=== PATIENT | male | born 2000 | race Hispanic/Latino ===

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

== ENCOUNTER 2020-12-01 22:14 | Emergency (ER) | payer OTHER, SELFPAY ==
--- OUTSIDE RECORDS SUMMARY | 2020-12-01 23:51 | XMS REPORT | Continuity of Care Document ---
:2000 Author Organization [facility] t Address [address] Cardenas [address] [place] [id number] Care Team Providers Name Role Phone Unavailable Unavailable Unavailable Problems This patient has no known problems. Allergies, Adverse Reactions, Alerts This patient has no known allergies or adverse reactions. Medications This patient has no known medications. Procedures This patient has no known procedures. Results This patient has no known results.
[2020-12-02] MEDS ORDERED: HYDROCODONE/APAP 5/325 MG TAB ONE
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
[2020-12-02 04:42] VITALS: O2SAT 98
[2020-12-02 04:43] VITALS: BP 156/63; TEMP 99.8
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
== END 2020-12-02 01:42 | disposition home or self-care (01) ==
LOC: ER 22:14
DX: S93.401A Sprain of unspecified ligament of right ankle, initial encounter (principal); X50.0XXA Overexertion from strenuous movement or load, initial encounter
CPT/HCPCS: 99284

== ENCOUNTER 2020-12-28 18:31 | Emergency (ER) | payer OTHER, SELFPAY ==
--- OUTSIDE RECORDS SUMMARY | 2020-12-28 18:34 | XMS REPORT | Continuity of Care Document ---
:2000 Author Organization [facility] t Address [address] Cardenas [address] [place] [id number] Care Team Providers Name Role Phone Unavailable Unavailable Unavailable Problems This patient has no known problems. Allergies, Adverse Reactions, Alerts This patient has no known allergies or adverse reactions. Medications This patient has no known medications. Procedures This patient has no known procedures. Results This patient has no known results.
[2020-12-28] MEDS ORDERED: IBUPROFEN 400 MG TAB ONE (21:21)
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
[2020-12-28 23:08] VITALS: BP 142/87; TEMP 98.2; O2SAT 100
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
== END 2020-12-28 22:57 | disposition home or self-care (01) ==
LOC: ER 18:31
DX: M54.5 Low back pain (principal); M54.2 Cervicalgia; V43.62XA Car passenger injured in collision with other type car in traffic accident, initial encounter
CPT/HCPCS: 72125; 72128; 72131; 99284

== ENCOUNTER 2022-03-25 19:40 | Emergency (ER) | payer SELFPAY ==
--- OUTSIDE RECORDS SUMMARY | 2022-03-25 19:44 | XMS REPORT | Continuity of Care Document ---
:2000 Author Organization [facility] t Address [facility] [place] [address] Care Team Providers Name Role Phone PCP, PATIENT DOES NOT HAVE A Primary Care Physician Unavaila ble AMBREEN_REGINALDOA Attending Clinician Unavailable Jake SANTIAGO Attending Clinician Unavailable CAROLE_ELIO Admitting Clinician Unavailable Payers Payer Name Policy Type Policy Number Effective Date Expiration Date [facility] [id number] 2015 CHOICE MEDICAID 00:00:00 Problems This patient has no known problems. Allergies, Adverse Reactions, Alerts Allergy Allergy Status Severity Reaction(s) Onset Inactive Treating Comm ents Source Name Type Date Date Clinician NO KNOWN Drug [facility] This patient has no known medications. Procedures This patient has no known procedures. Encounters Start End Encounter Admission Attending Care Care Encounter Source Date/Time Date/Time Type Type Clinicians Facility Department ID 2021-11-22 2021-11-22 Outpatient AMBREEN_F[facility] [id number] [place] 04:25:00 04:25:00 [facility] 2021-11-01 2021-11-01 Outpatient AMBREEN_[facility] [id number] [place] 12:09:00 12:09:00 [facility] 2020-11-08 2020-11-08 Outpatient Shelly SANTIAGO [facility] [id number] [facility] 15:00:00 15:00:00 [facility] 2020-11-08 2020-11-08 Outpatient [facility] [id number] [facility] 15:00:00 15:00:00 [id number] [facility] 2020-10-11 2020-10-11 Outpatient Shelly SANTIAGO [facility] [id number] [facility] 15:00:00 15:00:00 [facility] 2020-01-09 2020-01-09 Outpatient AMBREEN_[facility] [id number] [place] 02:35:00 02:35:00 HANSA [id number] da [facility] Results This patient has no known results.
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
[2022-03-25] MEDS ORDERED: dexAMETHasone 10 MG/ML VIAL ONE (20:48)
== END 2022-03-25 20:47 | disposition home or self-care (01) ==
LOC: ER 19:40
DX: U07.1 COVID-19 (principal)
CPT/HCPCS: 96372; 99283; J1100

== ENCOUNTER → 2023-11-01 | Emergency (ER) | payer SELFPAY ==
--- OUTSIDE RECORDS SUMMARY | 2023-11-01 17:25 | XMS REPORT | Continuity of Care Document ---
Author Name Unknown Address [address] [place] [address] [facility] Address [address] [place] [address] Care Team Providers Care Oral Surgery Physician Name Role Phone PCP, PATIENT DOES NOT HAVE A Primary Care Physic karina Unavailable AMBREEN_FARHANA Attending Clinician Unavailable LUI SANTIAGO Attending Clinician Unavailable AMBREEN_FARHANA Admitting Clinician Unavailable Payers Payer Name Policy Type Policy Number Effective Date Expirati on Date Source [facility] MEDICAID [id number] 2015 00:00:00 Allergies, Adverse Reactions, Alerts Allergy Name Allergy Type Status Severity Reaction(s) Onset Date Inactive Date Treating Clinician Comments Source NO KNOWN ALLERGIE S Drug Class Active [facility] Encounters Start Date/Time End Date/Time Encounter Type Admission Type Attending Clinicians Care Facility Care Department Encounter ID Source 2023-05-29 09:38:24 2023-05-29 09:38:24 Outpatient [facility] [id number] Cordell Nieto 2023-05-04 15:01:51 2023-05-04 15:01:51 Outpatient [facility] [id number] Cordell Cotton Gerson 2023-05-02 13:47:44 2023-05-02 13:47:44 Outpatient [facility] [id number] Cordell Nieto 2021-11-22 04:25:00 2021-11-22 04:25:00 Outpatient AMBREEN_FAR HANA JUDY [facility] [id number] Julián [facility] 2021-11-01 12:09:00 2021-11-01 12:09:00 Outpatient BELLOWU RAYGOZAMattie MAGIA [facility] [id number] [facility] 2020-11-08 15:00:00 2020-11-08 15:00:00 Outpatient LUI [facility] [id number] [facility] 2020-11-08 15:00:00 2020-11-08 15:00:00 Outpatient [facility] [id number] [facility] 2020-10-11 15:00:00 2020-10-11 15:00:00 Outpatient LUI [facility] [id number] [facility] 2020-01-09 02:35:00 2020-01-09 02:35:00 Outpatient BELLOWU RAYGOZAMattie KIM [facility] [id number] [facility]
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
[2023-11-01 19:42] VITALS: BP 140/80; TEMP 97.6; O2SAT 100
--- NOTE | 2023-11-01 19:46 | RAD REPORT ---
EXAM DESCRIPTION: RAD - Chest Single View - 11/01/2023 7:30 pm CLINICAL HISTORY: CHEST PAIN Chest pain. COMPARISON: Chest Pa And Lat (2 Views) dated 08/08/2019; CHEST PA AND LAT 2 VIEW dated 10/19/2008 FINDINGS: Portable technique limits examination quality. The lungs are grossly clear. The heart is normal in size. No displaced fractures. IMPRESSION: No acute intrathoracic process suspected.
--- NOTE | 2023-11-01 19:48 | RAD REPORT ---
EXAM DESCRIPTION: RAD - C Spine Ap/Lat - 11/01/2023 7:30 pm CLINICAL HISTORY: left paresthesia Pain, radiculopathy COMPARISON: No comparisons FINDINGS: Cervical bodies are normal in height and alignment.No fracture or acute bony process seen. No disc space narrowing. No prevertebral soft tissue thickening or other suspicious soft tissue finding. IMPRESSION: Negative cervical spine examination.
--- NOTE | 2023-11-02 15:24 | EKG ---
Test Date: 2023-11-01 Test Time: 17:37:07 Basket Assembler: FLORES MEASUREMENT RESULTS: Intervals: Rate: 69 NE: 156 QRSD: 86 QT: 358 QTc: 383 [place]: P: 45 NE: 156 QRS: 75 T: 38 INTERPRETIVE STATEMENTS: Normal sinus rhythm Normal ECG No previous ECG available for comparison Electronically Signed On 11-02-23 15:23:24 SHEETROCK APPLICATOR by Giorgio Stroud
== END ==
LOC: ER 17:22
DX: M54.12 Radiculopathy, cervical region (principal); R07.9 Chest pain, unspecified
CPT/HCPCS: 71045; 72040; 93005

== ENCOUNTER 2024-07-02 19:06 | Emergency (ER) | payer BC, SELFPAY ==
--- OUTSIDE RECORDS SUMMARY | 2024-07-02 19:09 | XMS REPORT | Continuity of Care Document ---
Author Name Unknown Address [address] [place] [address] [facility] Address [address] [place] [address] Care Team Providers Care Laborer/Key Man Name Role Phone PCP, PATIENT DOES NOT HAVE A Primary Care Physic karina Unavailable Dasia Payne Attending Clinician [phone] DASIA BAKER Attending Clinician Unavail able AMBREEN_FARHANA Attending Clinician Unavailable LUI SANTIAGO Attending Clinician Unavailable ESTRELLITA Admitting Clinician Unavailable Payers Payer Name Policy Type Policy Number Effective Date Expirati on Date Source [employer] [id number] 2015 00:00:00 Allergies, Adverse Reactions, Alerts Allergy Name Allergy Type Status Severity Reaction(s) Onset Date Inactive Date Treating Clinician Comments Source NO KNOWN ALLERGIE S Drug Class Active [facility] Social History Social Habit Start Date Stop Date Quantity Comments Source Sexual [facility] Alcoholic beverage intake 2018-01-11 00:00:00 2018-01-11 00:00:00 Current non-drinker of alcohol (finding) [facility] Tobacco use and exposure 2017-09-22 00:00:00 2017-09-22 00:00:00 Smokeless tobacco non-user [facility] History of Social function 2017-09-22 00:00:00 2017-09-22 00:00:00 [facility] Sex assigned at 2000 00:00:00 2000 00:00:00 [facility] Smoking Status Start Date Stop Date Source Never smoked tobacco [facility] Immunizations Ordered Immunization Name Filled Immunization Name Date Status Comments Source SARS-COV-2 COVID-19 MODERNA 12+ YRS VACCINE Unknown Completed [facility] Encounters Start Date/Time End Date/Time Encounter Type Admission Type Attending [facility] Care Department Encounter ID Source 2024-03-21 13:37:00 2024-03-21 23:59:00 Hospital Encounter Dasia Baker [facility] [email or web address] [facility]. [id number] [facility] 2024-03-21 00:00:00 2024-03-21 23:59:00 Outpatient DASIA SALCEDO [facility] [id number] [facility] 2023-05-29 09:38:24 2023-05-29 09:38:24 Outpatient SFA SFA [id number] Cordell Nieto 2023-05-04 15:01:51 2023-05-04 15:01:51 Outpatient SFA SFA [id number] Cordell Nieto 2023-05-02 13:47:44 2023-05-02 13:47:44 Outpatient SFA SFA [id number] Cordell Nieto 2021-11-22 04:25:00 2021-11-22 04:25:00 Outpatient AMBREEN_FAR HANA [facility] [id number] [facility] 2021-11-01 12:09:00 2021-11-01 12:09:00 Outpatient AMBREEN_FAR HANA [facility] [id number] [facility] 2020-11-08 15:00:00 2020-11-08 15:00:00 Outpatient LUI HERMAN [facility] [id number] [facility] 2020-11-08 15:00:00 2020-11-08 15:00:00 Outpatient [facility] [id number] [facility] 2020-10-11 15:00:00 2020-10-11 15:00:00 Outpatient LUI HERMAN [facility] [id number] [facility] 2020-01-09 02:35:00 2020-01-09 02:35:00 Outpatient HEAVEN KIM [facility] [id number] [facility]
[2024-07-02 19:54] LABS: SARS-CoV-2 Antigen CONTROL BLUE LINE VIS/BG OK; SARS-CoV-2 Antigen Rapid Res Negative (Negative)
--- NOTE | 2024-07-02 19:57 | EDPHYS ---
Physician Documentation [facility] Name: Yohannes Brooks Jr Age: 23 yrs Sex: Male : 2000 Arrival Date: 07/02/2024 Time: 19:06 Bed 12 Private MD: ED Physician Sierra Rosen HPI: 07/02 19:18 This 23 yrs old Male presents to ER via Ambulatory with complaints of Cough. kb 19:18 Patient is a 23-year-old male who presents failure cough, chest congestion and fever kb that started 3 days ago. Temperature max 102. Denies vomiting, diarrhea.. Historical: - Allergies: 19:17 No Known Allergies; bm8 - Home Meds: 19:17 None [Active]; bm8 - PMHx: 19:17 concussion; bm8 - PSHx: 19:17 None; bm8 - Immunization history:: Adult Immunizations up to date. - Infectious Disease History:: Denies. - Social history:: Smoking status: Patient denies any tobacco usage or history of. ROS: 19:18 Constitutional: As per HPI kb Exam: 19:18 Constitutional: This is a well developed, well nourished patient who is awake, alert, kb and in no acute distress. Head/Face: Normocephalic, atraumatic. ENT: Moist Mucous membranes Cardiovascular: Regular rate Respiratory: Respirations even and unlabored. No increased work of breathing. Talking in full sentences Skin: Warm, dry with normal turgor. Normal color. MS/ Extremity: Pulses equal, no cyanosis. Neurovascular intact. Full, normal range of motion. Neuro: Awake and alert, GCS 15, oriented to person, place, time, and situation. 19:18 ENT: Posterior pharynx: Tonsils: bilaterally enlarged, with erythema, swelling, that is mild, erythema, that is moderate, Vital Signs: 19:16 BP 158 / 92; Pulse 92; Resp 18; Temp 100; Pulse Ox 96% ; Weight 88 kg; Height 5 ft. 7 bm8 in. ; Pain 5/10; 19:16 Body Mass Index 30.38 (88.00 kg, 170.18 cm) bm8 19:16 Pain Scale: Adult bm8 MDM: 19:17 Medical Screening Exam initiated kb 19:56 Data reviewed: vital signs, nurses notes. kb 19:56 Differential Diagnosis: Other flu, covid, uri, strep. I considered the following kb discharge prescriptions or medication management in the emergency department I discussed and recommended Over The Counter medications, Antibiotics: At this time antibiotics are not recommended. Counseling: I had a detailed discussion with the patient and/or guardian regarding the historical points, exam findings, and any diagnostic results supporting the discharge/admit diagnosis, lab results, the need for outpatient follow up, a family practitioner, to return to the emergency department if symptoms worsen or persist or if there are any questions or concerns that arise at home. 07/02 19:18 Order name: Flu; Complete Time: 19:56 kb 07/02 19:18 Order name: SARS-COV-2 Antigen Rapid; Complete Time: 19:56 kb 07/02 19:18 Order name: Strep; Complete Time: 19:56 kb 07/02 19:58 Order name: Throat Culture EDMS Administered Medications: No medications were administered Disposition Summary: 07/02/24 19:57 Discharge Ordered Notes: Location: Home kb Condition: Stable kb Diagnosis - Acute upper respiratory infection, unspecified kb Followup: kb - With: Emergency Department - When: As needed - Reason: Worsening of condition Followup: kb - With: Private Physician - When: 2 - 3 days - Reason: Recheck today's complaints, Continuance of care, Re-evaluation by your physician Discharge Instructions: - Discharge Summary Sheet kb - Upper Respiratory Infection, Adult, [id number] kb - Viral Respiratory Infection, [id number] kb Forms: - Medication Reconciliation Form kb - Antibiotic Education kb - Prescription Opioid Use kb - Patient Portal Instructions kb - Leadership Thank You Letter kb Signatures: Dispatcher [employer] EDMS Ashley Culp, OFF PREMISE SERVICE REPRESENTATIVE-C OFF PREMISE SERVICE REPRESENTATIVE-Ckb Sebastián Mcdaniel, RN RN bm8 Corrections: (The following items were deleted from the chart) 19:18 19:18 Influenza Screen (A \T\ B)+BA.LAB.BRZ ordered. EDMS EDMS 19:18 19:18 SARS-COV-2 Antigen Rapid+I.LAB.BRZ ordered. EDMS EDMS 19:18 19:18 Group A Streptococcus Rapid Sc+BA.LAB.BRZ ordered. EDMS EDMS
--- NOTE | 2024-07-02 19:57 | ER ---
Nurse's Notes [facility] Name: Yohannes Brooks Jr Age: 23 yrs Sex: Male : 2000 Arrival Date: 07/02/2024 Time: 19:06 Bed 12 Private MD: Diagnosis: Acute upper respiratory infection, unspecified Presentation: 07/02 19:16 Chief complaint: Patient states: i have cough fever and congestion for three days. bm8 Coronavirus screen: Vaccine status: Patient reports receiving the 2nd dose of the covid vaccine. Ebola Screen: Patient negative for fever greater than or equal to 101.5 degrees Fahrenheit, and additional compatible Ebola Virus Disease symptoms Patient denies exposure to infectious person. Patient denies travel to an Ebola-affected area in the 21 days before illness onset. No symptoms or risks identified at this time. Initial Sepsis Screen: Does the patient meet any 2 criteria? HR > 90 bpm. No. Patient's initial sepsis screen is negative. Does the patient have a suspected source of infection? No. Patient's initial sepsis screen is negative. Risk Assessment: Do you want to hurt yourself or someone else? Patient reports no desire to harm self or others. Onset of symptoms was June 29, 2024. 19:16 Method Of Arrival: Ambulatory 8 19:16 Acuity: GENOVEVA 4 bm8 Triage Assessment: 19:17 General: Appears in no apparent distress. uncomfortable, Behavior is calm, cooperative, bm8 appropriate for age. Pain: Complains of pain in chest Pain does not radiate. Pain currently is 5 out of 10 on a pain scale. Quality of pain is described as tight Pain began 2-3 days ago. EENT: No deficits noted. No signs and/or symptoms were reported regarding the EENT system. Neuro: No deficits noted. Level of Consciousness is awake, alert, obeys commands, Oriented to person, place, time, situation, Appropriate for age. Cardiovascular: Reports chest pain, from coughing Heart tones S1 S2 present. Respiratory: Reports cough that is Breath sounds are clear bilaterally. GI: No deficits noted. No signs and/or symptoms were reported involving the gastrointestinal system. : No deficits noted. No signs and/or symptoms were reported regarding the genitourinary system. Derm: No deficits noted. No signs and/or symptoms reported regarding the dermatologic system. Musculoskeletal: No deficits noted. No signs and/or symptoms reported regarding the musculoskeletal system. Historical: - Allergies: 19:17 No Known Allergies; bm8 - Home Meds: 19:17 None [Active]; bm8 - PMHx: 19:17 concussion; bm8 - PSHx: 19:17 None; bm8 - Immunization history:: Adult Immunizations up to date. - Infectious Disease History:: Denies. - Social history:: Smoking status: Patient denies any tobacco usage or history of. Screenin:13 [facility] ED Fall Risk Assessment (Adult) History of falling in the last 3 months, jb4 including since admission No falls in past 3 months (0 pts) Confusion or Disorientation No (0 pts) Intoxicated or Sedated No (0 pts) Impaired Gait No (0 pts) Mobility Assist Device Used No (0 pt) Altered Elimination No (0 pt) Score/Fall Risk Level 0 - 2 = Low Risk Oriented to surroundings, Maintained a safe environment. Abuse screen: Denies threats or abuse. Nutritional screening: No deficits noted. Tuberculosis screening: No symptoms or risk factors identified. Assessment: 20:13 Reassessment: Patient appears in no apparent distress at this time. Patient and/or jb4 family updated on plan of care and expected duration. Pain level reassessed. Patient is alert, oriented x 3, equal unlabored respirations, skin warm/dry/pink. Vital Signs: 19:16 BP 158 / 92; Pulse 92; Resp 18; Temp 100; Pulse Ox 96% ; Weight 88 kg; Height 5 ft. 7 bm8 in. ; Pain 5/10; 19:16 Body Mass Index 30.38 (88.00 kg, 170.18 cm) bm8 19:16 Pain Scale: Adult bm8 ED Course: 19:09 Patient arrived in ED. ra3 19:17 Ashley [facility]ulp [facility]NP-C [facility] kb 19:17 Sierra Rosen MD is Attending Physician. kb 19:17 Triage completed. bm8 19:17 Arm band placed on right wrist. bm8 20:13 Patient has correct armband on for positive identification. Bed in low position. Call jb4 light in reach. Side rails up X 1. Provided Education on: discharge instructions.. 20:13 No provider procedures requiring assistance completed. Patient did not have IV access jb4 during this emergency room visit. Patient maintains SpO2 saturation greater than 95% on room air. Administered Medications: No medications were administered Medication: 20:13 VIS not applicable for this client. jb4 Outcome: 19:57 Discharge ordered by . kit 20:13 Discharged to home ambulatory, jb4 20:13 Condition: stable 20:13 Discharge instructions given to patient, Instructed on discharge instructions, follow up and referral plans. Demonstrated understanding of instructions, follow-up care, 20:14 Patient left the ED. jb4 Signatures: Ashley Culp, RC-Lopez TATUM-Nish Varner, RN RN jb4 Inge Thompson ra3 Sebastián Mcdaniel, RN RN bm8
[2024-07-02 20:37] VITALS: BP 158/92; TEMP 100; O2SAT 96
== END 2024-07-02 20:14 | disposition home or self-care (01) ==
LOC: ER 19:06
DX: J06.9 Acute upper respiratory infection, unspecified (principal); Z11.52 Encounter for screening for COVID-19
CPT/HCPCS: 36415; 87070; 87081; 87804; 87811; 99282

== ENCOUNTER 2024-11-03 07:45 | Inpatient (IN) | payer BC ==
--- OUTSIDE RECORDS SUMMARY | 2024-11-03 07:49 | XMS REPORT | Continuity of Care Document ---
Author Name Unknown Address [address] [place] [address] [facility] thconnect Address [address] [facility] [address] [place] [address] Care Team Providers Care Rail Washer Name Role Phone Pcp, Patient Does Not Have A Primary Care Physic karina Priyanka English Attending Clinician [phone] Unknown, Attending Attending Clinician Unavailab PRIYANKA Andrews Attending Clinician Unavailable Doctor Unassigned, [place] Attending Clinician U navailMELODIE Renteria Attending Clinician Unavailable MELODIE BRUNO Attending Clinician Unavailable Melodie Bruno NP Attending Clinician [phone] LISHA HERNANDEZ Attending Clinician UnavailLISHA Rose Attending Clinician UnavailLisha Rose MD Attending Clinician [phone] Dasia Payne Attending Clinician + [phone] DASIA REEVES Attending Clinician Unavail able Campaigns, Generic Provider Attending Clinician Unavailable Joe Galdamez Attending Clinician [phone] JOE HARRIS Attending Clinician Unavailable Dasia Payne Attending Clinician + [phone] AMBREEN_REGINALDOA Attending Clinician Unavailable LUI SANTIAGO Attending Clinician Unavailable ESTRELLITA Admitting Clinician Unavailable Payers Payer Name Policy Type Policy Number Effective Date Expirati on Date Source [facility] MEDICAID [id number] 2015 00:00:00 Allergies, Adverse Reactions, Alerts Allergy Name Allergy Type Status Severity Reaction(s) Onset Date Inactive Date Treating Clinician Comments Source NO KNOWN ALLERGIE S Drug Class Active [facility] Social History Social Habit Start Date Stop Date Quantity Comments Source [facility] Tobacco use and exposure 2024-11-02 00:00:00 2024-11-02 00:00:00 Smokeless tobacco non-user [facility] Alcoholic beverage intake 2024-11-02 00:00:00 2024-11-02 00:00:00 Current non-drinker of alcohol (finding) [facility] History of Social function 2024-11-02 00:00:00 2024-11-02 00:00:00 [facility] Sex assigned at 2000 00:00:00 2000 00:00:00 [facility] Smoking Status Start Date Stop Date Source Never smoked tobacco [facility] Medications Ordered Medication Name Filled Medication Name Start Date Stop Date Current Medication? Ordering Clinician Indication Dosage Frequency Signature (SIG) Comments Components Source dexAMETHaso ne (DECADRON) tablet 12 mg 11-03 02:30: 00 11-03 01:56 :00 No [id number] 12mg 12 mg, Oral, ONCE, 1 dose, On 11/02/24 at 2030, Routine [facility] emtricitabi ne-tenofovi r, TDF, 200-300 mg tablet 2023-09 00:00: 00 Yes 1{tbl} Take 1 tablet by mouth in the morning. [facility] dolutegravi r 50 mg tablet 2023-09 00:00: 00 Yes 50mg Take 1 tablet by mouth in the morning. [facility] dolutegravi r 50 mg tablet 2023-09 00:00: 00 08-28 05:59 :00 Yes [id number] 9105 50mg Take 1 tablet by mouth in the morning for 3 days. [facility] emtricitabi ne-tenofovi r alafen tablet 2023-09 00:00: 00 08-28 05:59 :00 Yes [id number] 9105 1{tbl} Take 1 tablet by mouth in the morning for 3 days. [facility] ondansetron 4 mg tablet 2023-09 00:00: 00 08-23 00:00 :00 Yes [id number] 9105 1 or 2 tablets every 8 hours as needed for nausea [facility] ipratropium -albuteroL (DUONEB) 0.5 mg-3 mg(2.5 mg base)/3 mL nebulizer solution 3 mL 2023-09 02:41: 00 07-18 02:48 :00 No [id number] 3mL 3 mL, Inhalation , ONCE, 1 dose, On Mon07/17/24 at 2045, Routine [facility] azithromyci n 250 mg tablet 2023-09 00:00: 00 Yes [id number] Z pack as directed. [facility] albuterol 90 mcg/actuati on inhaler 2023-09 00:00: 00 07-28 05:59 :00 No [id number] 2{puff} Inhale 2 Puffs every 4 (four) hours as needed for Wheezing for up to 10 days. [facility] benzonatate 200 mg capsule 2023-09 00:00: 00 07-28 05:59 :00 No [id number] 200mg Take 1 capsule by mouth 3 (three) times daily as needed for Cough for up to 10 days. [facility] predniSONE 20 mg tablet 2023-09 00:00: 00 07-23 05:59 :00 No [id number] 40mg Take 2 tablets by mouth in the morning for 5 days. [facility] codeine-gua ifenesin 10-100 mg/5 mL oral solution 2023-09 00:00: 00 07-23 05:59 :00 No 5mL Take 5 mL by mouth every 6 (six) hours as needed for Cough for up to 5 days. Indication s: [facility] Immunizations Ordered Immunization Name Filled Immunization Name Date Status Comments Source SARS-COV-2 COVID-19 MODERNA 12+ YRS VACCINE 2020-11-08 00:00:00 Completed [facility] SARS-COV-2 COVID-19 MODERNA 12+ YRS VACCINE 2020-10-11 00:00:00 Completed [facility] SARS-COV-2 COVID-19 MODERNA 12+ YRS VACCINE Unknown Completed [facility] Vital Signs Vital Name Observation Time Observation Value Comments S ource Systolic blood pressure 2024-11-03 01:34:00 149 mm[Hg] [facility] Diastolic blood pressure 2024-11-03 01:34:00 90 mm[Hg] [facility] acute hospital Heart rate 2024-11-03 01:33:00 65 /min Unive [facility] Body temperature 2024-11-03 01:33:00 36.61 Estelita [facility] Respiratory rate 2024-11-03 01:33:00 14 /min [facility] Body height 2024-11-03 01:33:00 170.2 cm [facility] Body weight 2024-11-03 01:33:00 90.22 [facility] BMI 2024-11-03 01:33:00 31.15 kg/m2 [facility] Oxygen saturation in Arterial blood by Pulse oximetry 2024-11-03 01:33:00 100 /min [facility] acute hospital Systolic blood pressure 2024-08-26 18:28:00 140 mm[Hg] [facility] acute hospital Diastolic blood pressure 2024-08-26 18:28:00 91 mm[Hg] [facility] acute hospital Heart rate 2024-08-26 18:28:00 68 /min Unive [facility] Body temperature 2024-08-26 18:28:00 37 Estelita [facility] Respiratory rate 2024-08-26 18:28:00 16 /min [facility] Body height 2024-08-26 18:28:00 170.2 cm [facility] Body weight 2024-08-26 18:28:00 89.359 kg [facility] BMI 2024-08-26 18:28:00 30.85 kg/m2 [facility] Oxygen saturation in Arterial blood by Pulse oximetry 2024-08-26 18:28:00 98 /min [facility] acute hospital Systolic blood pressure 2024-08-23 20:27:00 122 mm[Hg] [facility] acute hospital Diastolic blood pressure 2024-08-23 20:27:00 77 mm[Hg] General acute hospital Heart rate 2024-08-23 20:27:00 68 /min Unive [facility] Body temperature 2024-08-23 20:27:00 37.11 Estelita [facility] Respiratory rate 2024-08-23 20:27:00 16 /min [facility] Body height 2024-08-23 20:27:00 170.2 cm [facility] Body weight 2024-08-23 20:27:00 88.451 kg [facility] BMI 2024-08-23 20:27:00 30.54 kg/m2 [facility] Oxygen saturation in Arterial blood by Pulse oximetry 2024-08-23 20:27:00 100 /min [facility] acute hospital Systolic blood pressure 2024-07-18 02:35:00 151 mm[Hg] General acute hospital Diastolic blood pressure 2024-07-18 02:35:00 95 mm[Hg] General acute hospital Heart rate 2024-07-18 02:34:00 80 /min [facility] Body temperature 2024-07-18 02:34:00 36.78 Estelita [facility] Respiratory rate 2024-07-18 02:34:00 18 /min [facility] Body weight 2024-07-18 02:34:00 86.183 kg [facility] Oxygen saturation in Arterial blood by Pulse oximetry 2024-07-18 02:34:00 98 /min [facility] Procedures Procedure Date / Time Performed Performing Clinicia n Source POCT MOLECULAR STREP 2024-11-03 01:36:00 Unknown, Atte nding [facility] QUANTIFERON-TB ASSAY 2024-08-23 18:15:00 Sujit Reeves [facility] XR CHEST 2 VW 2024-07-18 02:48:10 Joe [facility] Encounters Start Date/Time End Date/Time Encounter Type Admission Type Attending [facility] Care Facility Care Department Encounter ID Source 2024-11-02 20:40:00 2024-11-02 20:40:00 Urgent Care Priyanka Pineda Unknown, Attending [facility] 1..840.114 350.1.13.10 4.2.7.2.686 [id number] [facility] 2024-11-02 20:40:00 2024-11-02 20:00:51 Outpatient R PRIYANKA PINEDA [facility] [id number] [facility] 2017-09-21 00:00:00 2024-10-19 03:28:29 Orders Only Doctor Unassigned, [place] Doctor Unassigned, [place] [facility] 1..840.114 350.1.13.10 4.2.7.2.686 [id number] [facility] 2024-08-26 12:29:00 2024-08-26 14:06:00 Emergency MELODIE CEBALLOS PAMALA [facility] ERT [id number] [facility] 2024-08-26 12:29:00 2024-08-26 14:06:00 Emergency Melodie Bruno [facility] 1..840.114 350.1.13.10 4.2.7.2.686 [id number] [facility] 2024-08-23 14:31:00 2024-08-23 15:14:00 Emergency X LISHA HERNANDEZ ROBERT [facility] ERT [id number] [facility] 2024-08-23 14:31:00 2024-08-23 15:14:00 Emergency Lisha Hernandez [facility] ..840.114 350.1.13.10 4.2.7.2.686 [id number] [facility] 2024-08-23 12:05:00 2024-08-23 14:30:00 Hospital Encounter Sujit Reevesitlin D [facility] 1.2.840.114 350.1.13.10 4.2.7.2.686 [id number] [facility] 2024-08-23 00:00:00 2024-08-23 14:30:00 Outpatient R REEVES DASIA [facility] [id number] [facility] 2024-07-24 00:00:00 2024-07-24 10:22:01 Letter (Out) Campaigns, Generic Provider Campaigns, Generic Provider [facility] ([facility] 1..840.114 350.1.13.10 4.2.7.2.686 [id number] [facility] 2024-07-18 00:00:00 2024-07-18 10:56:17 Telephone Joe Harris [facility]?DEANDRAMattie [facility] 1.2.840.114 350.1.13.10 4.2.7.2.686 [id number] [facility] 2024-07-17 20:40:54 2024-07-17 23:59:00 Outpatient R JOE HARRIS [facility] [id number] [facility] 2024-07-17 20:40:54 2024-07-17 23:59:00 Hospital Encounter Joe Harris [facility] 1.2.840.114 350.1.13.10 4.2.7.2.686 [id number] [facility] 2024-07-17 20:40:00 2024-07-17 20:49:40 Urgent Care Joe Harris Unknown, Attending [facility] RODRÍG[facility] 1.2.840.114 350.1.13.10 4.2.7.2.686 [id number] [facility] 2024-03-21 13:37:00 2024-03-21 23:59:00 Hospital Encounter Dasia Reeves D [facility] 1.2.840.114 350.1.13.10 4.2.7.2.686 [id number] [facility] 2024-03-21 00:00:00 2024-03-21 23:59:00 Outpatient DASIA SALCEDO [facility] [id number] [facility] 2023-05-29 09:38:24 2023-05-29 09:38:24 Outpatient SFA SFA [id number] Cordell Cotton Gerson 2023-05-04 15:01:51 2023-05-04 15:01:51 Outpatient SFA SFA 0831 Cordell Nieto 2023-05-02 13:47:44 2023-05-02 13:47:44 Outpatient SFA SFA 0829 Cordell Nieto 2021-11-22 04:25:00 2021-11-22 04:25:00 Outpatient AMBREEN[facility] [id number] [facility] 2021-11-01 12:09:00 2021-11-01 12:09:00 Outpatient AMBREEN[facility] [id number] [facility] 2020-11-08 15:00:00 2020-11-08 15:00:00 Outpatient LUI HERMAN [facility] [id number] [facility] 2020-11-08 15:00:00 2020-11-08 15:00:00 Outpatient [facility] [id number] [facility] 2020-10-11 15:00:00 2020-10-11 15:00:00 Outpatient LUI HERMAN [facility] [id number] [facility] 2020-01-09 02:35:00 2020-01-09 02:35:00 Outpatient [facility]AVEN K[facility] [id number] Julián stephany [facility] Program Results Test Description Test Time Test Comments Results Result Co mments Source [facility] [id number] 15:12:45* Test Item Value Reference Range Interpretation Comme nts Nil (test code = 96190-0) 0.042 IU/mL TB1 minus Nil (test code = 19660-7) 0.002 IU/mL TB2 minus Nil (test code = 1757849973) -0.006 IU/mL Mitogen minus Nil (test code = 39862-9) 9.958 IU/mL QFT Gold Plus Result (test code = 85386-0) Negative Negative CARLOS (test code = CARLOS) The QuantiFERON? TB Gold Plus (in Tube) assay is intended for use as an aid in diagnosis of TB infection. This test uses a peptide cocktail of CD4+ and CD8+ T cell antigens to stimulate cells in whole blood. ?Detection of interferon-gamma is used to identify in vitro responses to these peptide antigens that are associated with Mycobacterium tuberculosis infection. A negative result suggests that M. tuberculosis infection is unlikely. ?However, in patients with high suspicion of exposure, a negative test should be repeated on a new sample. A positive result indicates an interferon-gamma response to M. tuberculosis antigens, suggesting infection with M. tuberculosis. Positive results in patients at low-risk for tuberculosis should be interpreted with caution and repeat testing on a new sample is advised. ?If repeat testing is positive, treatment may be indicated. ?Consult Infectious Disease Services for further recommendations. False positive results may occur in patients with prior infection with M. marinum, M. szulgai, or M. kansasii. For an indeterminate result, the likelihood of determining infection with M. tuberculosis cannot be determined. ?If clinically indicated, repeat testing on a new sample is advised. Diagnosing or excluding tuberculosis disease, and assessing the probability of LTBI, requires a combination of epidemiological, historical, medical, and diagnostic findings that should be considered when interpreting QFT-Plus results. ?See general guidance on the diagnosis and treatment of TB disease and LTBI https://www.cdc.gov/tb/pu blications/guidelines/def dora.htm. [facility] [id number] 03:28:36Chest two views CLINICAL INDICATION: ?cough x 3 weeks PHYSICIAN NAME: JOE HARRIS Technique: ? PA and Lateral views of the chest. ? COMPARISON: ?No prior available FINDINGS: There is no pleural effusion, pneumothorax, or confluentinfiltrate. The cardiac silhouette is within normal limits. There is nofailure pattern.[facility] Notes Date/Time Note Provider Source 2024-08-26 13:28:21 Pt to ED for wrong blood drawn for needle stick. Pt had needle stick to thumb while attempting to recap a needle. From there he went to [facility] lab and had a TB tube drawn. He then checked into ED that day just to get prescriptions. Pt received phone call from [employer] stating he needed to come back to ER to have blood borne exposure labs drawn. 4-yellow tops, 1-lavender top drawn @ 1325. Instructed pt to call [facility] [facility] for rest of prescription. NA Ham RN [facility] 2024-08-26 12:26:42 CC: patient presents to the ER with complaints of a needle stick that happened Monday. Patient states he had blood work performed and was informed that the "blood work was wrong and I need to come back to the ER." Awake, alert, oriented, resp reg unlabored, skin warm and dry, color appropriate for race, moves all ext without difficulty, amb without assistance. Appears in no distress. NA Blanco RN [facility] 2024-08-23 15:12:42 Pt given printed and verbal discharge instructions regarding needlestick injury with exposure to body fluid. Prescription x3 printed and given to patient Pt verbalized understanding of instructions, pt awake alert oriented, resp reg unlabored, skin w/d, color appropriate for race, moves all ext well,pt encouraged to follow up with pcp or [facility] employee health Advised to seek medical attention for new/prolonged/worsening of symptoms. No adverse reaction to meds given in ER noted upon discharge Awake, alert oriented, resp reg unlabored, skin w/d, pt leaving ambulatory without assist, in no apparent distress, D MIXER Monserrat Arnold RN [facility] 2024-08-23 14:27:18 Patient states: "I had a needle stick today at 1035." Site: right thumb. Pt is [facility] employee. D MIXER Natalia Young RN [facility] 2024-08-23 14:18:00 [facility] Emergency Department Note Patient Name: Jorge Brooks Date of : 2000 24 year old male Treatment Room: [facility] Primary Care Physician: PATIENT DOES NOT HAVE A PCP Patient Escorted by: Self [9] Mode of Arrival: Personal means [1] EMS Treatment Prior to ED Arrival: [facility] treatment: None Travel and Exposure Screening: Symptoms Does patient have any of these symptoms?: (not recorded) Exposure Screening Has patient had contact with someone with a communicable disease in the last month?: (not recorded) Diseases exposed to:: (not recorded) Is Patient ?: (not recorded) Exposure Date: (not recorded) Chief Complaint: Chief Complaint Patient presents with Other Needle stick History of Present Illness: Needlestick injury to palmar surface of right thumb after injecting a patient. Occurred this AM at Urgent Care. Wound cleaned prior to arrival. Employee Health paperwork and lab draw also completed prior to arrival. Presents to ED for post-exposure prophylaxis. Source blood was not obtained. Unknown HIV status of source patient. History provided by: Patient Past Medical History/Immunizations: Past Medical History: Diagnosis Date Post-operative nausea and vomiting Tetanus received in last 5 years: Unknown Childhood immunizations: Up-to-date Allergies: No Known Allergies Past Social History: Tobacco Use Never smoked or used smokeless tobacco. Alcohol Use No. Drug Use No. Past Surgical History: Past Surgical History: Procedure Laterality Date FRACTURE SURGERY SOFT TISSUE FOREIGN BODY REMOVAL Right 09/25/2017 Surgeon: Tank Mcdaniel MD; Location: [facility] [place] Review of Systems: Review of Systems Constitutional: Negative. HENT: Negative. Eyes: Negative. Respiratory: Negative. Cardiovascular: Negative. Gastrointestinal: Negative. Genitourinary: Negative. Musculoskeletal: Negative. Skin: Positive for wound. Neurological: Negative. Psychiatric/Behavioral: Negative. Physical Exam: ED Triage Vitals [08/23/24 1427] Weight 88.5 kg (195 lb) Actual or estimated Estimated by patient/family report Height 1.702 m (5' 7") BP 122/77 Pulse 68 Resp 16 Temp 37.1 ?C (98.8 ?F) Temp source Oral SpO2 100 % Measured on Room air Physical Exam Vitals and nursing note reviewed. Constitutional: Appearance: Normal appearance. HENT: Head: Normocephalic and atraumatic. Right Ear: External ear normal. Nose: Nose normal. Mouth/Throat: Mouth: Mucous membranes are moist. Eyes: Extraocular Movements: Extraocular movements intact. Conjunctiva/sclera: Conjunctivae normal. Cardiovascular: Rate and Rhythm: Normal rate. Pulmonary: Effort: Pulmonary effort is normal. No respiratory distress. Abdominal: General: There is no distension. Musculoskeletal: General: Normal range of motion. Skin: General: Skin is warm and dry. Findings: Lesion (puncture wound plantar surface of right thumb, distal phalange.) present. Neurological: General: No focal deficit present. Mental Status: He is alert. Psychiatric: Mood and Affect: Mood normal. Behavior: Behavior normal. Thought Content: Thought content normal. Judgment: Judgment normal. Radiology: No orders to display Lab Results: Lab Results - No data to display EKG: If EKG completed, see Procedure Note. Orders and Treatments: No orders of the defined types were placed in this encounter. Orders Placed This Encounter Medications AND Linked Order Group dolutegravir (TIVICAY) tablet 50 mg emtricitabine-tenofovir alafen (DESCOVY) tablet 1 tablet dolutegravir 50 mg tablet emtricitabine-tenofovir alafen tablet DISCONTD: ondansetron 4 mg tablet ondansetron 4 mg tablet First Provider Eval: ED Events Date/Time Event User Comments 08/23/24 1443 Medical Screening Begins LISHA HERNANDEZ MD -- 08/23/24 144 First Provider Evaluation LISHA HERNANDEZ MD -- ED COURSE Diagnosis/Impression as of 08/23/24 1510 Needlestick injury accident with exposure to body fluid Procedures: Procedures MDM: Medical Decision Making Primary impression: puncture wound right thumb Secondary impression: Differential Diagnoses, including but not limited to: HIV exposure Problems Addressed: Needlestick injury accident with exposure to body fluid: acute illness or injury Amount and/or Complexity of Data Reviewed Independent Historian: Details: self Labs: Details: N/a; obtained prior to ED arrival Radiology: Details: N/a ECG/medicine tests: Details: N/a Discussion of management or test interpretation with external provider(s): N/a Risk Prescription drug management. Risk Details: Employee Health labs and paperwork completed prior to ED arrival. Requests HIV prophylaxis. Follow-up with [employer]. Flowsheet Documentation: Scoring Tools: No data recorded Disposition/Condition: ED Disposition ED Disposition Discharge Condition Stable Comment -- Discharge Medications: Patient's Medications START taking these medications DOLUTEGRAVIR 50 MG TABLET Take 1 tablet by mouth in the morning for 3 days. EMTRICITABINE-TENOFOVIR ALAFEN TABLET Take 1 tablet by mouth in the morning for 3 days. ONDANSETRON 4 MG TABLET 1 or 2 tablets every 8 hours as needed for nausea CONTINUE taking these medications which have NOT CHANGED AZITHROMYCIN 250 MG TABLET Z pack as directed. START taking Modified Medications as Prescribed No medications on file STOP taking these medications No medications on file Follow-up: Employee Health Electronically signed by: Lisha Hernandez MD 08/23/24 1510 [facility] 2024-07-18 10:54:59 Called and informed pt of results. Pt voiced understanding. Anita Acevedo 07/18/2024 10:55 AM [facility] Anita Acevedo [facility] 2024-07-18 09:54:46 Pt is requesting x ray results of the chest. D MIXER Radha Taylor [facility]
[2024-11-03 08:10] LABS: Absolute Basophils 0.1 K/uL (0-0.5); Absolute Lymphocytes (CBC) 1.5 K/uL (0.7-4.9); Absolute Monocytes 0.4 K/uL (0.1-1.3); Absolute Neutrophil 17.3 K/uL (1.8-8.0); Basophils % 0.3 % (0-1.3); Hematocrit 45.6 % (39.6-49.0); Hemoglobin 14.8 g/dL (13.6-17.9); MCH 25.8 pg (27.0-35.0); MCHC 32.4 g/dL (32.0-36.0); MCV 79.8 fL (80-100); Monocytes % 1.9 % (3.3-12.3); Neutrophils % 89.8 % (41.7-73.7); Nucleated Red Blood Cells % 0.1 % (0-0); Platelets 494 thou/uL (152-406); RBC Red Blood Cell Count 5.72 M/uL (4.33-5.43); Red Cell Distribution Width 13.8 % (12.1-15.2)
[2024-11-03] MEDS ORDERED: NA CHLORIDE 0.9% 1,000 ML ONE (08:16)
[2024-11-03 08:17] LABS: PT Prothrombin Time 12.9 SECONDS (10.0-13.0); PTT, Activated Partial Thromb 28.6 SECONDS (24.3-36.9); Protime INR 1.14
--- NOTE | 2024-11-03 08:19 | RAD REPORT ---
EXAM: CT brain without contrast HISTORY: STROKE ALERT COMPARISON: None TECHNIQUE: Multiple contiguous axial images were obtained and a CT of the brain without contrast. Sag ittal and coronal reformats were performed. One or more of the following dose reduction techniques were used: Automated exposure control, adjust ment of the mA and/or kV according to patient size, and/or iterative reconstruction. FINDINGS: No evidence of hydrocephalus, intracranial hemorrhage, or extra-axial fluid collection. The brain is normal in morphology. No evidence of midline shift or areas of brain edema. The calvarium is intact. The visualized paranasal sinuses and mastoid air cells are essentially clear . IMPRESSION: No evidence of acute intracranial abnormality. The findings were communicated with Rick Michel at 11/03/2024 8:17 AM by telephone.
[2024-11-03 08:26] LABS: ALT/SGPT 31 U/L (16-61); AST/SGOT 14 U/L (15-37); Albumin/Globulin Ratio 0.9 (1.1-1.8); Alkaline Phosphatase 160 U/L (45-117); Anion Gap 10.2 mEq/L (5.0-15.0); BUN Blood Urea Nitrogen 14 mg/dL (7-18); Bicarbonate 23 mEq/L (21-32); Bilirubin Total 0.6 mg/dL (0.2-1.0); Creatine Phosphokinase 98 U/L (39-308); Globulin 4.7 g/dL (2.3-3.5); Glomerular Filtration Rate 99 ml/min (=/>90); Glucose Level 179 mg/dL (74-106); Potassium 3.2 mEq/L (3.5-5.1); Protein, Total 8.7 g/dL (6.4-8.2); Sodium Level 137 mEq/L (136-145); Troponin High Sensitivity 14.9 pg/mL (<58.9)
--- NOTE | 2024-11-03 08:48 | RAD REPORT ---
EXAMINATION: ONE VIEW CHEST XR CLINICAL INDICATION: l sided weakness TECHNIQUE: Frontal chest projection is submitted. Examination is limited by patient positioning and t echnique. COMPARISON: 11/01/2023 FINDINGS: The lungs are well inflated and clear. The heart is normal in size. No displaced fractures identified . IMPRESSION: No acute intrathoracic abnormalities.
[2024-11-03 08:55] LABS: Influenza A Ag Negative; Influenza B Ag Negative; SARS-CoV-2 Antigen Rapid Res Negative (Negative)
--- NOTE | 2024-11-03 08:58 | RAD REPORT ---
EXAMINATION: CTA HEAD CLINICAL INDICATION: l sided weakness TECHNIQUE: Axial CT images were obtained through the head after intravenous contrast utilizing angiog raph protocol with 3D post-processing (maximum intensity projection images, volume rendered images and/or shaded surface rendered images). One or more of the following dose reduction technique s were used: Automated exposure control, adjustment of the mA and/or kV according to patient size, and/or iterative reconstruction. Unless otherwise specified, incidental findings do not require dedic ated imaging follow-up. COMPARISON: No prior exam. FINDINGS: ICA: The petrous, cavernous, and supraclinoid segments of the bilateral internal carotid arteries are normal. The ophthalmic artery origins are visualized and normal. The posterior communicating arteries are patent. MICHAEL: Anterior cerebral arteries are normal bilaterally. The anterior communicating artery is patent. MCA: Middle cerebral arteries are normal bilaterally. MOLDER BENCH: Posterior cerebral arteries are normal bilaterally. Vertebrobasilar: The right vertebral artery is dominant. The basilar artery is normal in appearance. 3D images confirm these findings. IMPRESSION: No significant flow abnormality is identified.
--- NOTE | 2024-11-03 09:00 | RAD REPORT ---
EXAMINATION: CTA NECK CLINICAL INDICATION: l sided weakness TECHNIQUE: Axial CT images were obtained from the aortic arch to the skull base after intravenous con trast utilizing angiographic protocol with 3D post-processing (maximum intensity projection images, volume rendered images and/or shaded surface rendered images). One or more of the following dose redu ction techniques were used: Automated exposure control, adjustment of the mA and/or kV according to patient size, and/or iterative reconstruction. Unless otherwise specified, incidental findings do not require dedicated imaging follow-up. COMPARISON: No prior exam. FINDINGS: AORTA: Right-sided aortic arch noted, normal variant. CCA: The common carotid arteries are patent and normal in caliber. ICA/ECA: Bilateral internal and external carotid arteries are patent. There is no significant interna l carotid artery stenosis. VERTEBRAL: The cervical vertebral arteries are patent. Right vertebral artery is dominant. SOFT TISSUE: No significant neck soft tissue abnormalities. The visualized lung apices are clear. 3D images confirm these findings. IMPRESSION: No significant flow abnormality of the neck vessels is identified. Right-sided aortic arch noted. NASCET criteria used. Mild 0-49% stenosis Moderate 50-69% stenosis Severe 70-99% stenosis
[2024-11-03 09:09] LABS: Bilirubin Direct < 0.2 mg/dL (0-0.2); Bilirubin Indirect, Calculated 0.4 mg/dL (0.2-0.8)
[2024-11-03 09:28] LABS: Blood Morphology Comment NOT SEEN (NOT SEEN); Platelet Estimate ADEQ; White Blood Cell Scan OK (OK)
[2024-11-03 09:37] LABS: Sqamous Epithelial <5 /HPF (None Seen); Urine Bacteria None Seen /HPF (<20); Urine Bilirubin NEGATIVE (Negative); Urine Blood 1+ (Negative); Urine Clarity Clear (Clear); Urine Color Colorless (Yellow); Urine Crystals Unidentified Few /HPF (None Seen); Urine Culture Reflex Order NOT NEEDED; Urine Glucose 1+ (Negative); Urine Ketones NEGATIVE (Negative); Urine Microscopic Reflex YN ORDER UMIC; Urine Nitrite NEGATIVE (Negative); Urine Protein 2+ (Negative); Urine Urobilinogen Normal (Normal)
[2024-11-03 09:39] LABS: Specific Gravity > 1.030 (1.005-1.030)
[2024-11-03] MEDS ORDERED: NA CHLORIDE 0.9% 100 ML ONE (10:36)
[2024-11-03] MEDS ORDERED: CEFEPIME 2 GM VIAL ONE (10:36)
--- NOTE | 2024-11-03 11:21 | EDPHYS ---
Physician Documentation [facility] Name: Yohannes Brooks Jr Age: 24 yrs Sex: Male : 2000 Arrival Date: 11/03/2024 Time: 07:45 Bed 7 Private MD: ED Physician Rick Michel HPI: 11/03 08:15 This 24 yrs old Male presents to ER via Ambulatory with complaints of General rt Weakness. 08:15 Patient presents to the ED with weakness to both of the upper and lower extremities. He rt went to bed normal last night, woke up feeling this way. Had a sore throat starting yesterday but denies other symptoms at this time, symptoms are moderate in severity, no other aggravating or alleviating factors.. Historical: - Allergies: 08:09 No Known Allergies; jl7 - Home Meds: 08:09 Lisinopril Oral [Active]; jl7 - PMHx: 08:09 concussion; Hypertensive disorder; jl7 - Immunization history:: Adult Immunizations unknown. - Infectious Disease History:: Denies. - Social history:: Smoking status: Patient denies any tobacco usage or history of. ROS: 08:15 Constitutional: Negative for fever, chills, and weight loss, Cardiovascular: Negative rt for chest pain, palpitations, and edema, Respiratory: Negative for shortness of breath, cough, wheezing, and pleuritic chest pain, Abdomen/GI: Negative for abdominal pain, nausea, vomiting, diarrhea, and constipation, MS/Extremity: Negative for injury and deformity, Skin: Negative for injury, rash, and discoloration, 08:15 ENT: Positive for sore throat, 08:15 Neuro: Positive for weakness, Negative for numbness, Exam: 08:15 ECG was reviewed by the Attending Physician. rt 08:15 Neuro: 4/5 strength in bilateral upper, lower extremities, somewhat worse on the left compared to the right. Sensation is intact, no cranial nerve deficits, 2-3 beats of left going lateral nystagmus, extraocular muscles otherwise intact, no visual field deficits, 08:15 Constitutional: This is a well developed, well nourished patient who is awake, alert, rt and in no acute distress. Head/Face: Normocephalic, atraumatic. Chest/axilla: Normal chest wall appearance and motion. Nontender with no deformity. No lesions are appreciated. Cardiovascular: Regular rate and rhythm with a normal S1 and S2. No gallops, murmurs, or rubs. Normal PMI, no JVD. No pulse deficits. Respiratory: Lungs have equal breath sounds bilaterally, clear to auscultation and percussion. No rales, rhonchi or wheezes noted. No increased work of breathing, no retractions or nasal flaring. Abdomen/GI: Soft, non-tender, with normal bowel sounds. No distension or tympany. No guarding or rebound. No evidence of tenderness throughout. Skin: Warm, dry with normal turgor. Normal color with no rashes, no lesions, and no evidence of cellulitis. Vital Signs: 07:47 BP 170 / 116; Pulse 140; Resp 15; Pulse Ox 100% ; Weight 89.81 kg; Height 5 ft. 7 in. ; 7 Pain 5/10; 08:15 BP 149 / 88; Pulse 113; Resp 18 S; Pulse Ox 99% on R/A; aa5 08:41 Temp 98.5; jl7 09:45 BP 138 / 76; Pulse 98; Resp 16 S; Temp 98.3(TE); Pulse Ox 100% on R/A; aa5 10:45 BP 137 / 68; Pulse 96; Resp 16 S; Pulse Ox 99% on R/A; aa5 11:45 BP 114 / 82; Pulse 85; Resp 18 S; Temp 97.8(TE); Pulse Ox 99% on R/A; aa5 07:47 Body Mass Index 31.01 (89.81 kg, 170.18 cm) [facility] 07:47 Pain Scale: Adult [facility] NIH Stroke Scale Scores: 07:48 NIHSS Score: 1 aa5 08:15 NIHSS Score: 0 aa5 MDM: 07:49 Medical Screening Exam initiated rt 17:30 Data reviewed: vital signs, nurses notes, lab test result(s), EKG, radiologic studies. rt Consideration of Admission/Observation Patient was admitted/placed on observation. Management of patient was discussed with the following: Hospitalist: agrees to admit. I considered the following discharge prescriptions or medication management in the emergency department Medications were administered in the Emergency Department. See MAR. Independent interpretation of the following test(s) in the Emergency Department X-Ray: My interpretation is No intracranial hemorrhage syndrome interpretation of CT scan images. Care significantly affected by the following chronic conditions: Hypertension. Counseling: I had a detailed discussion with the patient and/or guardian regarding the historical points, exam findings, and any diagnostic results supporting the discharge/admit diagnosis, lab results, radiology results, the need for further work-up and treatment in the hospital. Response to treatment: the patient's symptoms have markedly improved after treatment. 11/03 07:54 Order name: Basic Metabolic Panel; Complete Time: 09:14 rt 11/03 07:54 Order name: CBC with Diff; Complete Time: 09:29 rt 11/03 07:54 Order name: Hepatic Function; Complete Time: 09:14 rt 11/03 07:54 Order name: High Sensitivity Troponin; Complete Time: 09:14 rt 11/03 07:54 Order name: Protime (+inr); Complete Time: 08:36 rt 11/03 07:54 Order name: Ptt, Activated; Complete Time: 08:36 rt 11/03 07:54 Order name: CPK; Complete Time: 09:14 rt 11/03 08:08 Order name: COVID-19 Ag + Flu A+B Ag; Complete Time: 09:01 rt 11/03 08:08 Order name: Group A Streptococcus Rapid; Complete Time: 09:01 rt 11/03 08:08 Order name: Glucose, Ancillary Testing; Complete Time: 08:36 EDMS 11/03 08:37 Order name: Blood Culture Adult (2) rt 11/03 08:37 Order name: Lactate w/ 2H reflex if indic.; Complete Time: 10:06 rt 11/03 08:37 Order name: Urinalysis w/ reflexes; Complete Time: 10:06 rt 11/03 08:42 Order name: Throat Culture; Complete Time: 09:01 EDMS 11/03 09:28 Order name: CBC Smear Scan; Complete Time: 09:29 EDMS 11/03 09:40 Order name: Ghost Lactate-NO COLLECT Timer EDMS 11/03 11:16 Order name: C-Reactive Protein EDMS 11/03 11:16 Order name: Procalcitonin EDMS 11/03 07:54 Order name: CT Head Angio; Complete Time: 09:01 rt 11/03 07:54 Order name: CT Neck Angio; Complete Time: 09:01 rt 11/03 07:54 Order name: CT Stroke Brain w/o Contrast; Complete Time: 08:36 rt 11/03 07:54 Order name: Stroke CXR 1 View; Complete Time: 09:01 rt 11/03 07:54 Order name: Accucheck; Complete Time: 08:11 rt 11/03 07:54 Order name: Cardiac monitoring; Complete Time: 08:11 rt 11/03 07:54 Order name: EKG - Nurse/Tech; Complete Time: 08:11 rt 11/03 07:54 Order name: IV Saline Lock; Complete Time: 08:11 rt 11/03 07:54 Order name: Labs collected and sent; Complete Time: 08:11 rt 11/03 07:54 Order name: NPO; Complete Time: 08:11 rt 11/03 07:54 Order name: O2 Per Protocol; Complete Time: 08:11 rt 11/03 07:54 Order name: O2 Sat Monitoring; Complete Time: 08:11 rt 11/03 07:54 Order name: Stroke Swallow Screen; Complete Time: 08:14 rt 11/03 08:37 Order name: IV Saline Lock - Large Bore; Complete Time: 09:02 rt 11/03 08:37 Order name: Vital Signs; Complete Time: 09:02 rt EC:15 Rate is 142 beats/min. Rhythm is regular, Sinus tachycardia with No ectopy. QRS Gray is rt Normal. OR interval is normal. QRS interval is normal. QT interval is normal. No Q waves. T waves are Normal. No ST changes noted. Interpreted by me. Administered Medications: 08:17 Drug: NS 0.9% IV 1000 ml IV at 1 bolus Per protocol; to be given as a bolus over 60 aa5 minutes Route: IV; Rate: 1 bolus; Site: right antecubital; 09:17 Follow up: IV Status: Completed infusion; IV Intake: 1000ml aa5 10:52 Drug: Cefepime IVPB 2 grams IVPB at 200 ml/hr once over 30 mins; (mix in NS 100 mL) aa5 Route: IVPB; Rate: 200 ml/hr; Infused Over: 30 mins; Site: right antecubital; 11:07 Follow up: Response: No adverse reaction aa5 11:22 Follow up: IV Status: Completed infusion aa5 11:26 Drug: diphenhydrAMINE IVP 50 mg IVP once Route: IVP; Site: right antecubital; jl7 11:35 Follow up: Response: No adverse reaction aa5 Point of Care Testing: Blood Glucose: 08:09 Blood Glucose: 170 mg/dL; jl7 Ranges: Critical Glucose Levels:Adult <50 mg/dl or >400 mg/dl <40 mg/dl or >180 mg/dl Disposition Summary: 11/03/24 11:21 Hospitalization Ordered Notes: Hospitalization Status: Observation rt Provider: Dylon Bae rt Location: Telemetry/MedSurg (observation) rt Condition: Stable rt Problem: new rt Symptoms: have improved rt Bed/Room Type: Standard rt Room Assignment: 402(11/03/24 11:46) ja1 Diagnosis - Generalized weakness rt - Leukocytosis rt - Lactic acidosis rt Forms: - Medication Reconciliation Form rt - SBAR form rt - Leadership Thank You Letter rt NIH Stroke Scale - NIH Stroke Score Date: 11/03/2024 Time: 07:48 Total Score = 1 10. Dysarthria (speech clarity - read or repeat words) - 0(Normal) 11. Extinction and Inattention (visual/tactile/auditory/spatial/personal) - 0(No abnormality) 1a. Level of Consciousness (LOC) - 0(Alert) 1b. Level of Consciousness (LOC) (Month \T\ Age) - 0(Both) 1c. LOC Commands (Open \T\ Closes Eyes/[place]) - 0(Both) 2. Best Gaze (Lateral Gaze Paresis) - 0(Normal) 3. Visual Field Loss - 0(No visual loss) 4. Facial Palsy - 0(Normal) 5a. Left Arm: Motor (10-second hold) - 1(Drift) 5b. Right Arm: Motor (10-second hold) - 0(No drift) 6a. Left Leg: Motor (5-second hold - always test supine) - 0(No drift) 6b. Right Leg: Motor (5-second hold - always test supine) - 0(No drift) 7. Limb Ataxia (finger/nose \T\ heel/vasquez - test with eyes open) - 0(Absent) 8. Sensory Loss (pinprick arms/legs/face) - 0(Normal) 9. Best Language: Aphasia (description/naming/reading) - 0(No aphasia) Initials: aa5 NIH Stroke Scale - NIH Stroke Score Date: 11/03/2024 Time: 08:15 Total Score = 0 10. Dysarthria (speech clarity - read or repeat words) - 0(Normal) 11. Extinction and Inattention (visual/tactile/auditory/spatial/personal) - 0(No abnormality) 1a. Level of Consciousness (LOC) - 0(Alert) 1b. Level of Consciousness (LOC) (Month \T\ Age) - 0(Both) 1c. LOC Commands (Open \T\ Closes Eyes/[place]) - 0(Both) 2. Best Gaze (Lateral Gaze Paresis) - 0(Normal) 3. Visual Field Loss - 0(No visual loss) 4. Facial Palsy - 0(Normal) 5a. Left Arm: Motor (10-second hold) - 0(No drift) 5b. Right Arm: Motor (10-second hold) - 0(No drift) 6a. Left Leg: Motor (5-second hold - always test supine) - 0(No drift) 6b. Right Leg: Motor (5-second hold - always test supine) - 0(No drift) 7. Limb Ataxia (finger/nose \T\ heel/vasquez - test with eyes open) - 0(Absent) 8. Sensory Loss (pinprick arms/legs/face) - 0(Normal) 9. Best Language: Aphasia (description/naming/reading) - 0(No aphasia) Initials: aa5 Signatures: Dispatcher [employer] EDMS Mary Lee Audri, RN RN aa5 Leandro Cool RN RN jl7 Jeffrey Galvin RN RN ja1 Rick Michel MD MD rt Corrections: (The following items were deleted from the chart) 07:55 07:55 CT-STROKE BRAIN W/O CONTRAST+CT.RAD.BRZ ordered. EDMS EDMS 07:55 07:55 Chest Single View+RAD.RAD.BRZ ordered. EDMS EDMS 08:37 08:37 BLOOD CULTURE*+BA.LAB.BRZ ordered. EDMS EDMS 08:37 08:37 LACTATE+C.LAB.BRZ ordered. EDMS EDMS 08:37 08:37 Urinalysis+U.LAB.BRZ ordered. EDMS EDMS 11:37 11:21 rt sp 11:46 11:37 415 sp jose armando
--- NOTE | 2024-11-03 11:21 | ER ---
Nurse's Notes [facility] [place] Name: Yohannes Brooks Jr Age: 24 yrs Sex: Male : 2000 Arrival Date: 11/03/2024 Time: 07:45 Bed 7 Private MD: Diagnosis: Generalized weakness;Leukocytosis;Lactic acidosis Presentation: 11/03 07:46 Chief complaint: Patient states: Went to bed at 2300, woke at 0700 with weakness to jl7 bilateral upper and lower extremities. Sore throat started yesterday. 07:47 Coronavirus screen: At this time, the client does not indicate any symptoms associated jl7 with coronavirus-19. Ebola Screen: No symptoms or risks identified at this time. An acute neurological deficit is present. Pre-hospital glucose is not applicable to this patient. Initial Sepsis Screen: Does the patient meet any 2 criteria? No. Patient's initial sepsis screen is negative. Does the patient have a suspected source of infection? No. Patient's initial sepsis screen is negative. Risk Assessment: Do you want to hurt yourself or someone else? Patient reports no desire to harm self or others. Onset of symptoms is unknown. Care prior to arrival: None. 07:47 Method Of Arrival: Ambulatory jl7 07:47 Acuity: GENOVEVA 2 jl7 Triage Assessment: 08:09 The onset of the patients symptoms was November 02, 2024 at 22:00. General: Appears in no jl7 apparent distress. uncomfortable, Behavior is anxious. Pain: Complains of pain in all over Pain currently is 5 out of 10 on a pain scale. Neuro: Reports weakness in right arm, left arm, right leg and left leg. Stroke Activation: Symptom onset > 6 hours Physician: ED Attending; Name: Anand; Notified At: 07:55; Arrived At: 07:47 Physician: Mid-Level Provider; Name: ; Notified At: 07:55; Arrived At: Physician: [not used]; Name: ; Notified At: ; Arrived At: Physician: [not used]; Name: ; Notified At: ; Arrived At: Physician: [not used]; Name: ; Notified At: ; Arrived At: Historical: - Allergies: 08:09 No Known Allergies; jl7 - Home Meds: 08:09 Lisinopril Oral [Active]; jl7 - PMHx: 08:09 concussion; Hypertensive disorder; jl7 - Immunization history:: Adult Immunizations unknown. - Infectious Disease History:: Denies. - Social history:: Smoking status: Patient denies any tobacco usage or history of. Screenin:48 [facility] ED Fall Risk Assessment (Adult) History of falling in the last 3 months, aa5 including since admission No falls in past 3 months (0 pts) Confusion or Disorientation No (0 pts) Intoxicated or Sedated No (0 pts) Impaired Gait No (0 pts) Mobility Assist Device Used No (0 pt) Altered Elimination No (0 pt) Score/Fall Risk Level 0 - 2 = Low Risk Oriented to surroundings, Maintained a safe environment, Educated pt \\T\\ family on fall prevention, incl call for assistance when getting out of bed, Assessed \\T\\ reinforced patient's understanding of fall precautions. Abuse screen: Denies threats or abuse. Nutritional screening: No deficits noted. Tuberculosis screening: No symptoms or risk factors identified. Assessment: 07:48 VAN Scoring: Arm Drift: Minor drift Visual Disturbance: No visual disturbance noted. aa5 Aphasia: No aphasia noted. Neglect: No neglect noted. 07:48 General: Appears comfortable, Behavior is calm, cooperative. Pain: Complains of pain in aa5 whole body Pain currently is 5 out of 10 on a pain scale. Quality of pain is described as aching, Is continuous. Neuro: Level of Consciousness is awake, alert, obeys commands, Oriented to person, place, time, situation, Teachers' Assistant are weak on left Moves all extremities. Weakness in left arm(s) Gait is steady, Speech is normal, Facial symmetry appears normal, Pupils are PERRLA, Reports generalized weakness, pt states "I woke up weak" . Denies blurred vision dizziness, paresthesias numbness headache photophobia diplopia. Cardiovascular: Heart tones S1 S2 present Rhythm is sinus tachycardia. Respiratory: Airway is patent Respiratory effort is even, unlabored, Respiratory pattern is regular, symmetrical. GI: No signs and/or symptoms were reported involving the gastrointestinal system. : No signs and/or symptoms were reported regarding the genitourinary system. EENT: Reports sore throat since yesterday . Derm: Skin is pink, warm \\T\\ dry. Musculoskeletal: Range of motion: intact in all extremities. 08:03 Reassessment: Pt to CT scan via stretcher, accompanied by me. . aa5 08:13 Reassessment: Pt back from CT scan . aa5 08:15 Reassessment: See papercharting for complete documentation and complete NIHSS scores. . aa5 08:15 TNKase (Tenecteplase) Screening: Contraindications: Rapidly improving condition or aa5 minor deficit: Yes. 08:18 Viola Swallow Protocol Exclusion Criteria: Unable to remain alert for testing: No NPO aa5 for medical/surgical reason by provider order No Tracheostomy tube present No No thin liquids due to preexisting dysphagia/baseline modified diet thickened liquids No Exclusion Criteria Result: Proceed Brief Cognitive Screen What is your name? Normal, Where are you right now? Normal, What year is it? Normal. Oral Mechanism Examination Facial Symmetry: Normal, Motion: Normal, Lip Closure: Normal, Oral Mechanism Result: Normal. 3 oz Water Swallow Challenge: Pt able to drink all water without stopping, coughing, choking or throat clearing: Yes Result: PASS MD Notified: Rick Michel MD. 10:45 Reassessment: Patient is alert, oriented x 3, equal unlabored respirations, skin aa5 warm/dry/pink. 11:20 Reassessment: Hives noted to IV site, MD was notified. . aa5 11:20 Reassessment: Patient is alert, oriented x 3, equal unlabored respirations, skin aa5 warm/dry/pink. 11:35 Reassessment: Patient is alert, oriented x 3, equal unlabored respirations, skin aa5 warm/dry/pink. Hives to IV site have resolved. . 11:46 Reassessment: Report was faxed to admitting nurse, RM [id number].. aa5 Vital Signs: 07:47 BP 170 / 116; Pulse 140; Resp 15; Pulse Ox 100% ; Weight 89.81 kg; Height 5 ft. 7 in. ; jl7 Pain 5/10; 08:15 BP 149 / 88; Pulse 113; Resp 18 S; Pulse Ox 99% on R/A; aa5 08:41 Temp 98.5; jl7 09:45 BP 138 / 76; Pulse 98; Resp 16 S; Temp 98.3(TE); Pulse Ox 100% on R/A; aa5 10:45 BP 137 / 68; Pulse 96; Resp 16 S; Pulse Ox 99% on R/A; aa5 11:45 BP 114 / 82; Pulse 85; Resp 18 S; Temp 97.8(TE); Pulse Ox 99% on R/A; aa5 07:47 Body Mass Index 31.01 (89.81 kg, 170.18 cm) 7 07:47 Pain Scale: Adult [facility] NIH Stroke Scale Scores: 07:48 NIHSS Score: 1 aa5 08:15 NIHSS Score: 0 aa5 ED Course: 07:46 Patient arrived in ED. im 07:47 Rick Michel MD is Attending Physician. rt 07:47 Amy August, SKY is Primary Nurse. aa5 07:48 Arm band placed on Patient placed in an exam room, on a stretcher. aa5 07:48 Patient has correct armband on for positive identification. Placed in gown. Bed in low aa5 position. Call light in reach. Side rails up X2. Adult w/ patient. Client placed on continuous cardiac and pulse oximetry monitoring. NIBP monitoring applied. desk monitor on. Pulse ox on. NIBP on. 07:57 Initial lab(s) drawn, sent to lab. Inserted saline lock: 20 gauge in right antecubital aa5 area, using aseptic technique. Blood collected. Flushed with 10 mL NS. 08:03 EKG done, by ED staff, reviewed by Rick Michel MD. em1 08:09 Triage completed. jl7 08:15 CT Head Angio In Process Unspecified. EDMS 08:15 CT Neck Angio In Process Unspecified. EDMS 08:15 COVID swab sent to lab. Flu and/or RSV swab sent to lab. Strep swab sent to lab. aa5 08:16 CT Stroke Brain w/o Contrast In Process Unspecified. EDMS 08:33 No provider procedures requiring assistance completed. aa5 08:46 Stroke CXR 1 View In Process Unspecified. EDMS 09:10 First set of blood cultures drawn by me. em1 11:20 Dylon Bae PA is Hospitalizing Provider. rt 11:38 Diet tray given. em1 12:03 Patient admitted, IV remains in place. aa5 Administered Medications: 08:17 Drug: NS 0.9% IV 1000 ml IV at 1 bolus Per protocol; to be given as a bolus over 60 aa5 minutes Route: IV; Rate: 1 bolus; Site: right antecubital; 09:17 Follow up: IV Status: Completed infusion; IV Intake: 1000ml aa5 10:52 Drug: Cefepime IVPB 2 grams IVPB at 200 ml/hr once over 30 mins; (mix in NS 100 mL) aa5 Route: IVPB; Rate: 200 ml/hr; Infused Over: 30 mins; Site: right antecubital; 11:07 Follow up: Response: No adverse reaction aa5 11:22 Follow up: IV Status: Completed infusion aa5 11:26 Drug: diphenhydrAMINE IVP 50 mg IVP once Route: IVP; Site: right antecubital; jl7 11:35 Follow up: Response: No adverse reaction aa5 Medication: 08:28 VIS not applicable for this client. aa5 Point of Care Testing: Blood Glucose: 08:09 Blood Glucose: 170 mg/dL; jl7 Ranges: Intake: 09:17 IV: 1000ml; Total: 1000ml. aa5 Outcome: 11:21 Decision to Hospitalize by Provider. rt 12:03 Admitted to Med/surg accompanied by tech, via wheelchair, with chart, aa5 12:03 Condition: stable 12:03 Instructed on the need for admit, Demonstrated understanding of instructions, 12:15 Patient left the ED. aa5 NIH Stroke Scale - NIH Stroke Score Date: 11/03/2024 Time: 07:48 Total Score = 1 10. Dysarthria (speech clarity - read or repeat words) - 0(Normal) 11. Extinction and Inattention (visual/tactile/auditory/spatial/personal) - 0(No abnormality) 1a. Level of Consciousness (LOC) - 0(Alert) 1b. Level of Consciousness (LOC) (Month \\T\\ Age) - 0(Both) 1c. LOC Commands (Open \\T\\ Closes Eyes/Physical Damage Appraiser) - 0(Both) 2. Best Gaze (Lateral Gaze Paresis) - 0(Normal) 3. Visual Field Loss - 0(No visual loss) 4. Facial Palsy - 0(Normal) 5a. Left Arm: Motor (10-second hold) - 1(Drift) 5b. Right Arm: Motor (10-second hold) - 0(No drift) 6a. Left Leg: Motor (5-second hold - always test supine) - 0(No drift) 6b. Right Leg: Motor (5-second hold - always test supine) - 0(No drift) 7. Limb Ataxia (finger/nose \\T\\ heel/vasquez - test with eyes open) - 0(Absent) 8. Sensory Loss (pinprick arms/legs/face) - 0(Normal) 9. Best Language: Aphasia (description/naming/reading) - 0(No aphasia) Initials: aa5 NIH Stroke Scale - NIH Stroke Score Date: 11/03/2024 Time: 08:15 Total Score = 0 10. Dysarthria (speech clarity - read or repeat words) - 0(Normal) 11. Extinction and Inattention (visual/tactile/auditory/spatial/personal) - 0(No abnormality) 1a. Level of Consciousness (LOC) - 0(Alert) 1b. Level of Consciousness (LOC) (Month \\T\\ Age) - 0(Both) 1c. LOC Commands (Open \\T\\ Closes Eyes/Physical Damage Appraiser) - 0(Both) 2. Best Gaze (Lateral Gaze Paresis) - 0(Normal) 3. Visual Field Loss - 0(No visual loss) 4. Facial Palsy - 0(Normal) 5a. Left Arm: Motor (10-second hold) - 0(No drift) 5b. Right Arm: Motor (10-second hold) - 0(No drift) 6a. Left Leg: Motor (5-second hold - always test supine) - 0(No drift) 6b. Right Leg: Motor (5-second hold - always test supine) - 0(No drift) 7. Limb Ataxia (finger/nose \\T\\ heel/vasquez - test with eyes open) - 0(Absent) 8. Sensory Loss (pinprick arms/legs/face) - 0(Normal) 9. Best Language: Aphasia (description/naming/reading) - 0(No aphasia) Initials: aa5 Signatures: Dispatcher [employer] Mingo Sanders em1 Amy August RN RN aa5 Leandro Cool RN RN jl7 Rick Michel MD MD rt Jacki Solitario Corrections: (The following items were deleted from the chart) 08:26 08:25 BP 149 / 88; Pulse 113bpm; Resp 18bpm; Spontaneous; Pulse Ox 99% RA; aa5 aa5
[2024-11-03] MEDS ORDERED: DIPHENHYDRAMINE 50 MG/ML VIAL ONE (11:23)
--- NOTE | 2024-11-03 11:53 | P.PN ---
Subjective Date of Service: 11/03/24 Subjective: Presented with generalized weakness, no speech or swallowing trouble. No Tingling or numbness. No chest pain or shortness of breath. No nausea or vomiting. No abdominal pain. No obvious bleeding. Looks comfortable in the bed. No fever. 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 No facial weakness. 24-year-old patient presented with generalized weakness, CT head, CTA head and neck negative, clinically improving, has leukocytosis and lactic acidosis, start antibiotics for now, follow-up on cultures and de-escalate antibiotics. Hypokalemia, replace and monitor. Microscopic hematuria, no urinary symptoms, follow-up with PCP with repeat urinalysis. Plan Discussed with the patient and alexi rodriguez at bedside. Physical Examination - Studies Laboratory Data (last 24 hrs) 11/03/24 11/03/24 11/03/24 07:59 07:59 07:59 WBC 19.30 H Hgb 14.8 Hct 45.6 Plt Count 494 H PT 12.9 H INR 1.14 APTT 28.6 Sodium 137 Potassium 3.2 L BUN 14 Creatinine 1.07 Glucose 179 H Total Bilirubin 0.6 AST 14 L ALT 31 Alkaline Phosphatase 160 H Microbiology Data (last 24 hrs): 11/03/24 08:17 Throat Culture & Sensitivity - Final
[2024-11-03 13:01] VITALS: BMI 31.0
[2024-11-03] MEDS: POTASSIUM CL SA 10 MEQ TAB PO ONE (13:22)
[2024-11-03] MEDS: NA CHLORIDE 0.9% 1,000 ML IV SCH (13:22)
--- NOTE | 2024-11-03 14:09 | P.HP ---
Certification for Inpatient Patient admitted to: Observation With expected LOS: <2 Midnights Patient will require the following post-hospital care: None Practitioner: I am a practitioner with admitting privileges, knowledge of patient current condition, hospital course, and medical plan of care. Services: Services provided to patient in accordance with Admission requirements found in Title 42 Section 412.3 of the Code of Federal Regulations Patient History Date of Service: 11/03/24 Reason for admission: Leukocytosis History of Present Illness: 24-year-old otherwise healthy male presents emergency department for chief complaint of general weakness. He reports that he went to bed feeling fine although he did have a little of a sore throat yesterday, this morning he woke up and felt very weak in his upper and lower extremities, almost fell when getting out of bed and for that reason came to the emergency department. He was evaluated in the emergency department his labs were significant for leukocytosis with a white blood cell count of 19.3 potassium of 3.2 lactic acid of 2.9 initially down to 2.[address] head without contrast was negative for acute findings CTA of the head and neck were also performed which were negative for large vessel occlusion or significant stenosis. Chest x-ray was also obtained which was negative for acute findings. Given his leukocytosis, elevated lactic acid and tachycardia present on arrival ED provider wishes to admit under observation. Viral swabs are negative as well as strep swab Allergies No Known Allergies Allergy (Unverified 06/13/12 19:26) Home Medications: lisinopriL [Lisinopril] 5 mg PO DAILY 11/03/24 - Past Medical/Surgical History Diabetic: No -: 2008 Psychosocial/ Personal History: Lives at home with family - Social History Smoking Status: Never smoker Alcohol use: No CD- Drugs: No Caffeine use: Yes Place of Residence: Home Review of Systems 10-point ROS is otherwise unremarkable General: Weakness, Malaise Physical Examination - Vital Signs Temperature: 97.8 F Blood Pressure: 114/82 Pulse: 85 Respirations: 18 - Physical Exam General: Alert, In no apparent distress, Oriented x3 HEENT: Atraumatic, PERRLA, EOMI Neck: Supple, 2+ carotid pulse no bruit, No LAD, Without JVD or thyroid abnormality Respiratory: Clear to auscultation bilaterally, Normal air movement Cardiovascular: Regular rate/rhythm, Normal S1 S2 Gastrointestinal: Normal bowel sounds, No tenderness Musculoskeletal: No tenderness Integumentary: No rashes Neurological: Normal speech, Normal strength at 5/5 x4 extr, Normal tone, Normal affect - Studies Laboratory Data (last 24 hrs) 11/03/24 11/03/24 11/03/24 07:59 07:59 07:59 WBC 19.30 H Hgb 14.8 Hct 45.6 Plt Count 494 H PT 12.9 H INR 1.14 APTT 28.6 Sodium 137 Potassium 3.2 L BUN 14 Creatinine 1.07 Glucose 179 H Total Bilirubin 0.6 AST 14 L ALT 31 Alkaline Phosphatase 160 H Microbiology Data (last 24 hrs): 11/03/24 08:17 Throat Culture & Sensitivity - Final Assessment and Plan - Plan Assessment: SIRS/leukocytosis/elevated lactate Weakness Hypokalemia Plan: SIRS/leukocytosis/elevated lactate ROS negative aside from a sore throat yesterday Chest x-ray negative, urine with microscopic hematuria Continue with IV hydration, empiric antibiotics Blood cultures obtained in ED, Pro-Lex negative, CRP only mildly elevated Repeat CBC in the morning, if improving and ROS is negative possible discharge tomorrow on oral antibiotics Viral swabs and strep swab negative Weakness Improved with IV fluids Hypokalemia Replacement protocol in place DVT PPX:Lovenox Code status: Full Discharge Plan: Home Plan to discharge in: 24 Hours - Advance Directives Does patient have a Living Will: No Does patient have a Durable POA for Healthcare: No - Code Status/Comfort Care Code Status Assessed: Yes (Full code) Critical Care: No Time Spent Managing Pts Care (In Minutes): 61
[2024-11-04 06:25] LABS: Absolute Monocytes 2.2 K/uL (0.1-1.3); Absolute Neutrophil 20.5 K/uL (1.8-8.0); Basophils % 0.2 % (0-1.3); Hematocrit 38.4 % (39.6-49.0); Hemoglobin 12.5 g/dL (13.6-17.9); Lymphocytes % 11.6 % (15.3-44.8); MCH 26.3 pg (27.0-35.0); MCHC 32.6 g/dL (32.0-36.0); MCV 80.6 fL (80-100); Monocytes % 8.4 % (3.3-12.3); Neutrophils % 79.8 % (41.7-73.7); Platelets 450 thou/uL (152-406); RBC Red Blood Cell Count 4.77 M/uL (4.33-5.43)
[2024-11-04 06:47] LABS: Anion Gap 7.1 mEq/L (5.0-15.0); Potassium 4.1 mEq/L (3.5-5.1); Thyroid Stimulating Hormone 0.321 uIU/mL (0.358-3.740)
[2024-11-04 07:54] LABS: Blood Morphology Comment NOT SEEN (NOT SEEN); Differential Total Cells Count 100; Lymphocytes 6 % (15-42); Metamyelocytes 1 % (0-0); Monocytes 11 % (0-10); Platelet Estimate ADEQ; Segmented Neutrophils 82 % (40-80)
[2024-11-04] MEDS: ENOXAPARIN 40 MG/0.4 ML SQ SCH (08:46)
[2024-11-04] MEDS: AMOX/K CLAV 875 MG TAB PO SCH (08:46)
[2024-11-04] MEDS ORDERED: CEFTRIAXONE 1,000 MG in NA CHLORIDE 0.9% 50 ML IVPB SCH (09:00)
--- NOTE | 2024-11-04 10:53 | RAD REPORT ---
EXAM: CT CHEST, ABDOMEN AND PELVIS WITH CONTRAST CLINICAL INDICATION: chest pain and sob TECHNIQUE: CT chest, abdomen and pelvis was performed, following the administration of contrast, as p er department protocol. Axial, sagittal and coronal reconstructions were obtained. One or more of the following dose reduction techniques were used: Automated exposure control, adjustment of the mA a nd/or kV according to patient size, and/or iterative reconstruction. Unless otherwise specified, incidental findings do not require dedicated imaging follow-up. COMPARISON: No prior exam. FINDINGS: LUNGS: No evidence of airspace or interstitial process. No nodules. PLEURA: No pleural effusion. No pneumothorax. MEDIASTINUM AND LYMPH NODES: No mediastinal mass or fluid collection. Normal size mediastinal, hilar, and axillary lymph nodes. OSSEOUS STRUCTURES AND CHEST WALL: Intact. LIVER: The liver demonstrates mild fatty infiltration. No focal lesion or biliary dilatation is seen. Grossly unremarkable gallbladder. PANCREAS: No mass, ductal dilation, or baudilio-pancreatic fluid. SPLEEN: Normal size. No focal lesion. ADRENALS: Normal; no mass. KIDNEYS: Normal size and contour. No hydronephrosis. URINARY BLADDER: Normal contour. GASTROINTESTINAL TRACT: No bowel obstruction, free air, significant free fluid or abscess. APPENDIX: Normal appendix. LYMPH NODES: No lymphadenopathy. MUSCULOSKELETAL: No acute or suspicious osseous abnormality. OTHER: Right aortic arch noted, normal variant. IMPRESSION: No acute or significant abnormalities seen in the chest, abdomen or pelvis.
[2024-11-04] MEDS: PIPER TAZO 3.375 GM in NA CHLORIDE 0.9% 100 ML IV SCH (11:09)
[2024-11-04] MEDS: VANCOMYCIN 1.75 GM in NA CHLORIDE 0.9% 500 ML IVPB SCH (11:36)
--- NOTE | 2024-11-04 12:06 | EKG ---
Test Date: 2024-11-03 Test Time: 07:56:46 Master Esthetician: VLADIMIR MEASUREMENT RESULTS: Intervals: Rate: 142 WI: 128 QRSD: 86 QT: 290 QTc: 446 [place]: P: 75 WI: 128 QRS: 87 T: 31 INTERPRETIVE STATEMENTS: Sinus tachycardia Nonspecific ST abnormality Abnormal ECG Compared to ECG 11/01/2023 17:37:07 ST (T wave) deviation now present Sinus rhythm no longer present Electronically Signed On 11-04-24 12:03:13 BLANK DRILLER by Chris Bennett
--- NOTE | 2024-11-04 16:16 | P.PN ---
Subjective Date of Service: 11/04/24 Chief Complaint: Leukocytosis Subjective: No chest pain or shortness of breath. No nausea or vomiting. No abdominal pain. No obvious bleeding. Looks comfortable in the bed. No fever. Weakness resolved. 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 No facial weakness. Physical Examination - Vital Signs Temperature: 98 F Blood Pressure: 123/76 Pulse: 83 Respirations: 16 Pulse Ox (%): 98 Assessment And Plan - Plan 24-year-old patient presented with generalized weakness, CT head, CTA head and neck negative. leukocytosis/elevated lactate started broad-spectrum antibiotics as the WBC getting worse, CT chest abdomen pelvis was ordered which is negative, ID consult requested. Weakness Improved with IV fluids CT head, CTA head and neck negative, Hypokalemia Replace and monitor Microscopic hematuria, no urinary symptoms, follow-up with PCP with repeat urinalysis. Plan Discussed with the patient and family at bedside. DC plan depending on culture results and ID consult
[2024-11-05 04:36] LABS: Absolute Basophils 0.1 K/uL (0-0.5); Absolute Eosinophils 0.1 K/uL (0-0.5); Absolute Lymphocytes (CBC) 4.9 K/uL (0.7-4.9); Absolute Monocytes 1.9 K/uL (0.1-1.3); Absolute Neutrophil 9.9 K/uL (1.8-8.0); Basophils % 0.8 % (0-1.3); Eosinophils % 0.7 % (0-4.4); Hematocrit 38.2 % (39.6-49.0); Hemoglobin 12.3 g/dL (13.6-17.9); MCHC 32.1 g/dL (32.0-36.0); Monocytes % 11.2 % (3.3-12.3); Neutrophils % 58.3 % (41.7-73.7); Nucleated Red Blood Cells % 0.1 % (0-0); Platelets 383 thou/uL (152-406); RBC Red Blood Cell Count 4.71 M/uL (4.33-5.43); Red Cell Distribution Width 14.2 % (12.1-15.2)
[2024-11-05 04:51] LABS: Anion Gap 5.7 mEq/L (5.0-15.0); Potassium 3.7 mEq/L (3.5-5.1)
[2024-11-05] MEDS: POTASSIUM CL SA 10 MEQ TAB PO ONE (08:01)
--- NOTE | 2024-11-05 14:44 | P.PN ---
Subjective Date of Service: 11/05/24 Chief Complaint: Leukocytosis Subjective: No chest pain or shortness of breath. No nausea or vomiting. No abdominal pain. No obvious bleeding. Looks comfortable in the bed. No fever. Weakness resolved. Objective: General appearance: Alert and comfortable CVS: Normal S1 and S2 Lungs: Clear to auscultation bilaterally Abdomen: Soft, bowel sounds present, no tenderness Extremities: No lower extremity edema Physical Examination - Vital Signs Temperature: 97.8 F Blood Pressure: 126/73 Pulse: 73 Respirations: 18 Pulse Ox (%): 99 Assessment And Plan - Plan 24-year-old patient presented with generalized weakness, CT head, CTA head and neck negative. Found to have leukocytosis, CT chest abdomen pelvis negative, cultures negative, on broad-spectrum antibiotics, ID consult requested, plan for LP. 1. leukocytosis/elevated lactate -started broad-spectrum antibiotics as the WBC getting worse, CT chest abdomen pelvis negative, ID consult requested. -d/w Dr. Roman today, stop vancomycin, continue Zosyn for now, plan for LP. -check HIV screen 2. Weakness Improved with IV fluids CT head, CTA head and neck negative, 3. Hypokalemia Replaced, monitor 4. Mild Decrease in TSH but free T4 normal, this may be related to IV contrast, follow-up with PCP with repeat labs. 5. Microscopic hematuria, no urinary symptoms, follow-up with PCP with repeat urinalysis. Plan Discussed with the patient and family at bedside. DC plan depending on culture results and LP results
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
[2024-11-06 04:52] LABS: Absolute Basophils 0.1 K/uL (0-0.5); Absolute Eosinophils 0.2 K/uL (0-0.5); Absolute Monocytes 1.2 K/uL (0.1-1.3); Absolute Neutrophil 8.5 K/uL (1.8-8.0); Basophils % 0.5 % (0-1.3); Eosinophils % 1.2 % (0-4.4); Hemoglobin 12.3 g/dL (13.6-17.9); Lymphocytes % 33.3 % (15.3-44.8); MCH 26.3 pg (27.0-35.0); MCHC 33.2 g/dL (32.0-36.0); MCV 79.4 fL (80-100); MPV 7.1 fL (7.6-11.3); Monocytes % 7.9 % (3.3-12.3); Neutrophils % 57.1 % (41.7-73.7); Platelets 395 thou/uL (152-406); RBC Red Blood Cell Count 4.66 M/uL (4.33-5.43); Red Cell Distribution Width 14.3 % (12.1-15.2)
[2024-11-06] MEDS: DIAZEPAM 2 MG TABLET PO ONE (10:42)
[2024-11-06 13:40] LABS: CSF Glucose 72 mg/dL (40-70)
--- NOTE | 2024-11-06 14:08 | RAD REPORT ---
XR SPINE LUMBAR PUNCTURE CLINICAL INDICATION: Leuckocytosis. Hand/legs paresthesia or numbness. Concern for meningitis TECHNIQUE: The risks (including the risks of bleeding, infection, headache, and need for an epidural blood patch), benefits, and alternatives of the procedure were carefully explained to the patient who wished to proceed. Informed written consent was obtained and a timeout procedure was performed pr ior to beginning the study. The patient was positioned on the fluoroscopy table in an oblique prone position. The skin over the l er back was prepped and draped in the usual, sterile fashion. Local anesthesia was used for the subcutaneous soft tissues. A lumbar puncture was performed directing a spinal needle into the spinal canal under direct fluoroscopic guidance targeting Prone level, until the return of clear CSF was observed. FINDINGS: CSF appearance: Clear and free-flowing Total CSF volume removed: 12 cc. Samples were sent to the lab per the ordering physician's orders. Following completion of the procedure the needle was withdrawn and a band-aid placed over the punctur e site. Postprocedural instructions were given to the patient. Complications: None IMPRESSION: Successful fluoroscopically-guided LP, as above. Total fluoroscopy time was 0.2 minutes. Skin dose: 36.733 mGy
--- NOTE | 2024-11-06 14:15 | PN ---
Subjective: Patient lying in bed. No new acute event. Had lumbar puncture done earlier today. Objective: Vital Signs: Temperature 97, pulse 60, respirations 19, blood pressure 109/65. Lungs: Clear to auscultation. Heart: S1, S2. Regular. Abdomen: Soft, nontender. Bowel sounds present. Extremities: No edema. Laboratory Data: WBC 15, hemoglobin 12.3, platelets are 395. Chemistry shows BUN of 10, creatinine 0.7. Currently, on Zosyn. CSF studies are pending. Viral panel shows influenza A, B, SARS-CoV negative. Assessment And Plan: Fever, most likely secondary to viral syndrome. We will continue current treat ment. If no other signs of bacterial infection, we will recommend to stop antibiotic after the LP is negative. Continue to monitor for signs of infection and WBC count, leukocytosis. We will follow t he patient closely. NF/MODL Voice ID: [id number] Report ID: [id number]
[2024-11-06 15:56] LABS: Appearance CLEAR (CLEAR); Body Fluid Source CSF; Body Fluid WBC 4 /mm^3; Color of Supernate Not Xanthochromic (Not Xantho); Color of fluid Colorless (COLORLESS); Fluid Total Volume 10 ml; Tube # #2
--- NOTE | 2024-11-06 18:46 | P.PN ---
Subjective Date of Service: 11/06/24 Chief Complaint: Leukocytosis Plan for spinal tap, no acute issues, afebrile overnight Review of Systems 10-point ROS is otherwise unremarkable Physical Examination - Vital Signs Temperature: 98.2 F Blood Pressure: 107/68 Pulse: 66 Respirations: 18 Pulse Ox (%): 97 - Physical Exam General: Alert, In no apparent distress, Oriented x3 HEENT: Atraumatic, Normocephalic, PERRLA Neck: Supple, 2+ carotid pulse no bruit, JVD not distended Respiratory: Clear to auscultation bilaterally, Normal air movement Cardiovascular: No edema, Normal pulses, Regular rate/rhythm Capillary refill: <2 Seconds Gastrointestinal: Normal bowel sounds, Soft and benign, Non-distended Musculoskeletal: No clubbing, No swelling Integumentary: No breakdown, No significant lesion Neurological: Normal gait, Normal speech, Normal strength at 5/5 x4 extr Assessment And Plan - Plan 1. leukocytosis/elevated lactate -started broad-spectrum antibiotics as the WBC getting worse, CT chest abdomen pelvis negative, ID consult requested. -d/w Dr. Roman today, stop vancomycin, continue Zosyn for now, plan for LP. -check HIV screen -Pending culture, lumbar culture 2. Weakness Improved with IV fluids CT head, CTA head and neck negative, 3. Hypokalemia Replaced, monitor 4. Mild Decrease in TSH but free T4 normal, this may be related to IV contrast, follow-up with PCP with repeat labs. 5. Microscopic hematuria, no urinary symptoms, follow-up with PCP with repeat urinalysis. Discharge Plan: Home - Code Status/Comfort Care Code Status: Full Code Critical Care: No Time Spent Managing PTS Care (In Minutes): 35
[2024-11-06 20:59] VITALS: O2SAT 97
[2024-11-07 09:09] LABS: Absolute Eosinophils 0.2 K/uL (0-0.5); Absolute Lymphocytes (CBC) 2.3 K/uL (0.7-4.9); Absolute Monocytes 0.8 K/uL (0.1-1.3); Absolute Neutrophil 8.8 K/uL (1.8-8.0); Basophils % 0.3 % (0-1.3); Eosinophils % 1.5 % (0-4.4); Hematocrit 41.6 % (39.6-49.0); Hemoglobin 13.6 g/dL (13.6-17.9); Lymphocytes % 19.4 % (15.3-44.8); MCHC 32.6 g/dL (32.0-36.0); MPV 6.6 fL (7.6-11.3); Monocytes % 6.4 % (3.3-12.3); Neutrophils % 72.4 % (41.7-73.7); Platelets 455 thou/uL (152-406); RBC Red Blood Cell Count 5.21 M/uL (4.33-5.43)
--- NOTE | 2024-11-07 10:38 | P.DS ---
Admission Date: 11/04/24 Discharge Date: 11/07/24 Disposition: ROUTINE DISCHARGE Discharge Condition: FAIR Reason for Admission: Leukocytosis Brief History of Present Illness: 24-year-old otherwise healthy male presents emergency department for chief complaint of general weakness, symptoms preceded by a sore throat. He reports that he felt very weak in his extremities. No associated fever. He was evaluated in the emergency department his labs were significant for leukocytosis with a white blood cell count of 19.3 potassium of 3.2 lactic acid of 2.9 initially down to 2.[address] head without contrast was negative for acute findi ngs CTA of the head and neck were also performed which were negative for large vessel occlusion or significant stenosis. Chest x-ray was also obtained which was negative for acute findings. Given his leukocytosis, elevated lactic acid and tachycardia present on arrival patient was hospitalized for further management. Hospital Course: Patient was admitted to the medical floor and the following medical problems addressed: Leukocytosis/elevated lactate Sepsis -No associated fever -He was treated with broad-spectrum antibiotics as the WBC getting worse, CT chest abdomen pelvis negative,. -Infectious disease evaluated patient. -Lumbar puncture was performed, CSF study was unremarkable, CSF culture did not show any growth. -Blood cultures did not show any growth. -HIV screening is negative. -Acute viral illness with sepsis suspected -Leukocytosis improved significantly, patient became asymptomatic, was ambulatory, tolerated diet and had good appetite. -Antibiotic discontinued. -Patient deemed stable for discharge. -He is advised to return to the ED should he feel more sick or develop fever. Hypokalemia -Replaced. Vital Signs/Physical Exam: Temp Pulse Resp BP Pulse Ox 97.9 F 72 15 119/66 98 11/07/24 08:00 11/07/24 08:00 11/07/24 08:00 11/07/24 08:00 11/07/24 08:00 General: Alert, In no apparent distress HEENT: Mucous membr. moist/pink, Sclerae nonicteric Neck: Supple, JVD not distended Respiratory: Clear to auscultation bilaterally, Normal air movement Cardiovascular: Regular rate/rhythm, Normal S1 S2, No murmurs Gastrointestinal: Normal bowel sounds, Soft and benign, Non-distended, No tenderness Musculoskeletal: No swelling, No tenderness Integumentary: No rashes, No cyanosis Neurological: Normal speech, Normal strength at 5/5 x4 extr, Cranial nerves 3-12 intact Lymphatics: No axilla or inguinal lymphadenopathy Laboratory Data at Discharge: WBC 12.10 thou/uL (4.3-10.9) H 11/07/24 09:00 Hgb 13.6 g/dL (13.6-17.9) 11/07/24 09:00 Hct 41.6 % (39.6-49.0) 11/07/24 09:00 Plt Count 455 thou/uL (152-406) H 11/07/24 09:00 PT 12.9 SECONDS (10.0-13.0) H 11/03/24 07:59 INR 1.14 11/03/24 07:59 APTT 28.6 SECONDS (24.3-36.9) 11/03/24 07:59 Sodium 138 mEq/L (136-145) 11/06/24 04:22 Potassium 4.0 mEq/L (3.5-5.1) 11/06/24 04:22 BUN 10 mg/dL (7-18) 11/06/24 04:22 Creatinine 0.78 mg/dL (0.70-1.30) 11/06/24 04:22 Glucose 92 mg/dL (74-106) 11/06/24 04:22 Total Bilirubin 0.6 mg/dL (0.2-1.0) 11/03/24 07:59 AST 14 U/L (15-37) L 11/03/24 07:59 ALT 31 U/L (16-61) 11/03/24 07:59 Alkaline Phosphatase 160 U/L (45-117) H 11/03/24 07:59 Home Medications: lisinopriL [Lisinopril] 5 mg PO DAILY 11/03/24 Physician Discharge Instructions: Please return to the ED if you develop fever or the weakness returns or feel sicker. Diet: AHA Activity: Ad steven Followup: Carmelina Coles FNP [Primary Care Provider] - 1 Week Time spent managing pt's care (in minutes): 33
[2024-11-07 12:45] VITALS: BP 161/81; TEMP 98.3
== END 2024-11-07 12:45 | disposition home or self-care (01) | DRG 872 ==
LOC: ER 07:45 → ERHOLD 11:11 → 4TH 12:11 → OBSVTOIN 11-04 18:16
PROVIDERS: ADMIT Hospitalist; ATTEND Internal Medicine
PROC: 009U3ZX Drainage of Spinal Canal, Percutaneous Approach, Diagnostic (ICD-10-PCS; principal; 2024-11-07)
DX: A41.9 Sepsis, unspecified organism (principal); E87.20 Acidosis, unspecified; E87.6 Hypokalemia; I10 Essential (primary) hypertension; B97.89 Other viral agents as the cause of diseases classified elsewhere; R31.29 Other microscopic hematuria; Z79.899 Other long term (current) drug therapy; Z11.52 Encounter for screening for COVID-19
CPT/HCPCS: 36415; 70450; 70496; 70498; 71045; 71260; 74177; 77003; 80048; 80076; 81001; 82550; 82945; 82947; 83605; 84145; 84157; 84439; 84443; 84484; 85025; 85610; 85730; 86140; 87040; 87070; 87389; 87428; 88108; 89050; 93005; 96361; 96365; 96375; 99285; G0378; J0692; J1200; J1650; J2543; J3370; J7030; J7040; Q9967